=== PATIENT | male | born 1935 | race Caucasian/White ===

== ENCOUNTER 2022-02-26 11:09 | Outpatient (REF) | payer MEDICARE, SELFPAY ==
--- NOTE | ~2022-02-26 | XR_ITS ---
EXAMINATION: XR KNEE, LEFT CLINICAL INFORMATION: Left knee pain COMPARISON: None TECHNIQUE: Four views of the left knee. FINDINGS: Tricompartmental degenerative changes are present with narrowing of all compartments. There is faint chondrocalcinosis with calcification in both menisci. No fractures or dislocations are present. Extensive vascular calcification is noted. XR/XR knee LT 4V IMPRESSION: Tricompartmental degenerative changes with chondrocalcinosis.
== END 2022-02-26 11:10 | disposition home or self-care (01) ==
LOC: HO.HMGCX 11:09
PROVIDERS: Visit Provider Physician Assistant
DX: M25.562 Pain in left knee (principal)
CPT/HCPCS: 73564

== ENCOUNTER 2022-04-03 08:11 | Outpatient (REF) | payer MEDICARE, SELFPAY ==
--- NOTE | ~2022-04-03 | XR_ITS ---
EXAMINATION: XR HIP, RIGHT CLINICAL INFORMATION: Right hip sprain. COMPARISON: None TECHNIQUE: Two views of the right hip. FINDINGS: Bones and soft tissues are normal. No fracture. Alignment is anatomic. Hip joint space is maintained. XR/XR hip RT w PEL1V IMPRESSION: Unremarkable right hip.
== END 2022-04-03 08:12 | disposition home or self-care (01) ==
LOC: HO.HMGCX 08:11
PROVIDERS: PCP Internal Medicine; Visit Provider Internal Medicine
DX: S73.191A Other sprain of right hip, initial encounter (principal)
CPT/HCPCS: 73502

== ENCOUNTER 2022-12-23 07:53 | Outpatient (REF) | payer MEDICARE, SELFPAY ==
--- NOTE | ~2022-12-23 | XR_ITS ---
EXAMINATION: XR ABDOMEN KUB CLINICAL INDICATION: General calculus COMPARISON: None available. TECHNIQUE: AP view of the abdomen. FINDINGS: The bowel gas pattern is normal with no evidence of ileus or obstruction. No unusual soft tissue calcifications are noted. The bones are unremarkable. XR/XR KUB IMPRESSION: Unremarkable examination.
[2022-12-23 09:30] LABS: Anion Gap 12 (12-20); Blood Urea Nitrogen 41 mg/dL (9-16); Calcium 9.6 mg/dL (8.4-10.2); Carbon Dioxide 24 mmol/L (22-29); Chloride 109 mmol/L (96-108); Estimated Glomerular Filt Rate 40; Glucose Random 96 mg/dL (60-115); Potassium 4.9 mmol/L (3.3-5.1); Sodium 140 mmol/L (135-145)
== END 2022-12-23 07:54 | disposition home or self-care (01) ==
LOC: HO.XRAY 07:53
PROVIDERS: PCP Internal Medicine; Visit Provider Physician Assistant Surgical
DX: N40.1 Benign prostatic hyperplasia with lower urinary tract symptoms (principal); N20.0 Calculus of kidney
CPT/HCPCS: 36415; 74018; 80048

== ENCOUNTER 2023-11-29 23:07 | Observation (INO) | payer MEDICARE, SELFPAY ==
--- NOTE | 2023-11-29 | ECG_ITS ---
Test Reason : CHEST GUERRERO Blood Pressure : / mmHG Vent. Rate : 078 BPM Atrial Rate : 312 BPM P-R Int : 000 ms QRS Dur : 106 ms QT Int : 368 ms P-R-T Axes : 245 -60 009 degrees QTc Int : 419 ms Atrial flutter with 4:1 A-V conduction Left axis deviation Incomplete right bundle branch block Anterior infarct , age undetermined Abnormal ECG No previous ECGs available Referred By: Generic ED Physician Electronically Signed By:MARY EM
--- NOTE | ~2023-11-29 | MR_ITS ---
EXAMINATION: MR BRAIN WITHOUT CONTRAST CLINICAL INFORMATION: ? CVA COMPARISON: Same day CT head TECHNIQUE: MRI of the brain was obtained using routine sequences without contrast. FINDINGS: Motion artifact is present. No acute intracranial hemorrhage or infarct. Diffuse prominence of the sulci with associated ex vacuo dilation of the ventricles compatible with global cerebral atrophy. No midline shift or hydrocephalus. No acute extra-axial fluid collections. The osseous structures are unremarkable. The pituitary gland, pineal gland and remaining midline structures are unremarkable. Sequela of bilateral lens replacement. Otherwise, no acute orbital pathology. The paranasal sinuses and mastoid air cells are clear. MR/MR head/brain wo con IMPRESSION: Within the limitations of the study, -No acute intracranial abnormality. Electronically signed by: Marcel Mazariegos MD 11/30/2023 05:22 PM EDT
--- NOTE | ~2023-11-29 | XR_ITS ---
EXAMINATION: XR CHEST CLINICAL INFORMATION: Shortness of breath COMPARISON: None available. TECHNIQUE: Frontal view of the chest was obtained. FINDINGS: The cardiomediastinal silhouette is normal. There is no focal lung consolidation or pleural effusions. The bony structures and the soft tissues are unremarkable. XR/XR chest 1V IMPRESSION: No acute cardiopulmonary process. Electronically signed by: Donato Cruz MD 11/30/2023 04:02 AM EDT
--- NOTE | ~2023-11-29 | CT_ITS ---
EXAMINATION: CT HEAD WITHOUT CONTRAST CLINICAL INFORMATION: Loss of balance. COMPARISON: None available. TECHNIQUE: Contiguous axial imaging was performed from the skull base to vertex without intravenous administration of contrast. This CT examination was performed using dose optimization techniques as appropriate, variously including the following: *Automated exposure control *Adjustment of mA and/or kV according to patient size (this includes techniques or standardized protocols for targeted exams where dose is matched to indication/reason for exam; i.e. extremities or head) *Use of iterative reconstruction technique DLP: 693 mGy-cm FINDINGS: The lateral, third and fourth ventricles are normally outlined. The cortical sulci and basal cisterns are normally outlined as well. There is no acute territorial defects, hemorrhage or midline shift. The extra-axial spaces are unremarkable. Calvarium/scalp: Intact. Maxillofacial sinuses and mastoids: Clear as visualized. CT/CT head/brain wo IV con IMPRESSION: No acute intracranial pathology. Electronically signed by: Donato Cruz MD 11/30/2023 05:29 AM EDT
--- NOTE | ~2023-11-29 | CT_ITS ---
EXAMINATION: CTA head and neck with contrast CLINICAL INFORMATION: CVA COMPARISON: None available. TECHNIQUE: Test bolus sequences followed by intravenous administration of 100 mL of Omnipaque 350 contrast. Helical imaging was performed in the axial plane from the skull vertex to the thoracic inlet. Delayed postcontrast imaging of the head was also performed. The data was processed at the educational technologist workstation for generation of MIP sequences. Angled MIPs and volume rendered reformatted images were also generated at an offline 3D workstation. Stenoses are assessed in accordance with NASCET criteria unless otherwise indicated. This CT examination was performed using dose optimization techniques as appropriate, variously including the following: *Automated exposure control *Adjustment of mA and/or kV according to patient size (this includes techniques or standardized protocols for targeted exams where dose is matched to indication/reason for exam; i.e. extremities or head) *Use of iterative reconstruction technique DLP: 1578 mGy-cm FINDINGS: CTA NECK: Three-vessel aortic arch. The innominate and bilateral subclavian arteries are patent. The origins and cervical segments of the common carotid arteries are patent bilaterally. The right common carotid artery bifurcations demonstrate mural calcifications resulting in mild to moderate focal stenosis. The cervical segments of the internal carotid arteries are patent bilaterally. Nondominant right vertebral artery. The origins and cervical segments of the vertebral arteries are patent bilaterally. No hemodynamically significant stenosis, dissection, or aneurysm. The visualized branches of the external carotid arteries are unremarkable. CTA HEAD: Mild to moderate atherosclerotic calcifications of the bilateral carotid siphons. Anterior circulation: The petrous, cavernous, supraclinoid segments of the internal carotid arteries are patent bilaterally. The major branches of the anterior and middle cerebral arteries as well as anterior communicating artery complex are patent. No large vessel occlusion, saccular aneurysm, or dissection. Posterior circulation: The right intracranial vertebral artery terminates at the equally small right PICA, normal variant. The left intracranial vertebral artery is normal in caliber and is patent. The basilar artery is mildly tortuous in course however remains patent. The posterior cerebral and superior cerebellar arteries arise normally from the basilar summit. Right posterior cerebral artery. No aneurysm. On delayed imaging, the venous structures demonstrate normal contrast opacification. No filling defect. No abnormal intraparenchymal enhancement. Soft tissues: No suspicious neck mass or cervical adenopathy. Lungs: Dependent atelectasis bilaterally. Bones: No acute osseous abnormality. No lytic or blastic osseous lesions. Multilevel degenerative changes of the visualized spine. CT/CT angio head neck IMPRESSION: CTA head demonstrates no large vessel occlusion, saccular aneurysm, or dissection. CTA neck demonstrates no hemodynamically significant stenosis, dissection, or aneurysm. Electronically signed by: Marcel Mazariegos MD 11/30/2023 05:43 PM EDT
[2023-11-29 23:14] VITALS: BP 146/90; PULSE 79; RESP 20; TEMP 36.4; O2SAT 99; BMI 27.4
[2023-11-29 23:34] LABS: Basophils Percent Auto 0.3 % (0-2); Eosinophils Percent Auto 0.3 % (0-4); Hemoglobin 14.9 g/dl (14.0-18.0); Imm Gran Abs Auto 0.02 X10*3/uL (0.00-0.03); Imm Gran Pct Auto 0.2 % (0.0-0.4); Lymphocytes Absolute Auto 1.7 X10*3/uL (1.2-4.9); Lymphocytes Percent Auto 19.5 % (20-40); MANUAL DIFF FLAG NO; Mean Corpuscular HGB Conc 33.1 g/dl (31.0-36.0); Mean Corpuscular Hemoglobin 30.8 pg (27.0-33.0); Mean Corpuscular Volume 93.2 fL (80.0-98.0); Mean Platelet Volume 11.1 fL (9.4-12.4); Monocytes Absolute Auto 0.6 X10*3/uL (0.1-1.2); Monocytes Percent Auto 6.8 % (2-11); Neutrophils Absolute Auto 6.4 x10*3/uL (2.0-8.3); Neutrophils Percent Auto 72.9 % (45-73); Platelet Count 264 X10*3/uL (160-400); Red Blood Count 4.83 X10*6/uL (4.60-5.80); Red Cell Distribution Width 14.1 % (11.0-16.0); White Blood Count 8.7 X10*3/uL (4.8-10.8)
[2023-11-29 23:38] VITALS: BP 138/88; PULSE 77; RESP 14; TEMP 36.6; O2SAT 97
[2023-11-29 23:50] LABS: Alanine Aminotransferase 21 U/L (0-40); Albumin Level 4.4 g/dL (3.5-5.0); Alkaline Phosphatase 62 U/L (39-117); Anion Gap 19 (12-20); Aspartate Amino Transferase 20 U/L (5-37); Bilirubin Total 0.6 mg/dL (0.0-1.0); Blood Urea Nitrogen 38 mg/dL (9-16); Calcium 10.5 mg/dL (8.4-10.2); Carbon Dioxide 22 mmol/L (22-29); Chloride 106 mmol/L (96-108); Creatinine Clr Calc Pharmacy 35.1; Estimated Glomerular Filt Rate 46; Glucose Random 140 mg/dL (60-115); Potassium 4.8 mmol/L (3.3-5.1); Sodium 142 mmol/L (135-145); Total Protein 7.3 g/dL (6.5-8.0)
[2023-11-29 23:58] LABS: Troponin-I High Sensitivity 12.3 ng/L (<3.5-35.0)
[2023-11-30] VITALS (16 sets, daily range): BP systolic 117–155; BP diastolic 75–94; PULSE 75–160; RESP 17–20; TEMP 36.2–36.7; O2SAT 95–98
--- NOTE | 2023-11-30 03:00 | ED.DIZZY ---
HPI - Dizziness General Chief Complaint: Dizziness Stated Complaint: dizzy, upper abdominal pressure, nauseous Time Seen by Provider: 11/30/23 02:58 Source: patient Mode of arrival: ambulatory Limitations: no limitations History of Present Illness ED Provider: devon HOOD Narrative: Patient is 88 years old with history of hypertension CKD been feeling off balance with dizziness since 11:00 yesterday also feel some vague feeling in his chest patient feels slight lightheaded also when he stands up denies any palpitation feeling never had similar symptoms in the past no nausea no vomiting no headache on arrival it noticed patient in atrial flutter with heart rate 80-160 gets worse on standing Related Data Home Medications ?Medication ?Instructions ?Recorded ?Confirmed acetaminophen 500 mg tablet 1,000 mg PO Q6H PRN 12/04/21 (Tylenol Extra Strength) allopurinol 100 mg tablet 100 mg PO DAILY 12/04/21 11/30/23 cholecalciferol (vitamin D3) 25 25 mcg PO .every other day 12/04/21 mcg (1,000 unit) tablet clonidine HCl 0.1 mg tablet 0.1 mg PO BEDTIME 12/04/21 fluticasone propionate 50 spray intranasal 12/04/21 mcg/actuation nasal spray,suspension glucosamine HCl 500 mg tablet 500 mg PO DAILY 12/04/21 hydrochlorothiazide 25 mg tablet 25 mg PO DAILY 12/04/21 11/30/23 lisinopril 10 mg tablet 10 mg PO DAILY 12/04/21 11/30/23 potassium citrate 10 mEq (1,080 10 meq PO BID 12/04/21 11/30/23 mg) tablet,extended release rosuvastatin 5 mg tablet 5 mg PO DAILY 12/04/21 11/30/23 tamsulosin 0.4 mg capsule 0.4 mg PO DAILY 12/04/21 11/30/23 Previous Rx's ?Medication ?Instructions ?Recorded cyclobenzaprine 10 mg tablet 10 mg PO BEDTIME #14 tabs 12/04/21 meloxicam 15 mg tablet 15 mg PO DAILY #14 tabs 04/02/22 Allergies Allergy/AdvReac Type Severity Reaction Status Date / Time No Known Allergies Allergy Verified 11/29/23 23:17 Review of Systems Review of Systems: Yes all other systems are reviewed and are negative PMFSH Past Medical History Medical History CKD (chronic kidney disease) BPH (benign prostatic hyperplasia) Gout Mixed hyperlipidemia Hypertension Social History Social History Smoked in Last 30 Days: No Use of substances other than those prescribed or required for medical reasons: No Advance Directives: No Advance Directives Information Provided: Yes Do you have a plan to hurt others: No Plan Physical Exam Vital Signs: Vital Signs: Last Vital Signs Temp 98.0 F 11/30/23 06:00 Pulse 76 11/30/23 06:00 Resp 20 11/30/23 06:00 BP 155/87 H 11/30/23 06:00 Pulse Ox 96 11/30/23 06:00 O2 Del Method Room Air 11/30/23 06:00 BMI result Body Mass Index 27.4 Appearance: Alert. Oriented X3. No acute distress. Eyes: PERRLA, No Nystagmus ENT: Pharynx normal. Oral Mucosa moist Neck: Normal inspection. Neck supple. CVS: Irregularly irregular heart rate Pulses normal. Respiratory: No respiratory distress. Equal air entry bilateral, no wheezing/rales/rhonchi Abdomen: Soft and nontender. Bowel sounds are present, no mass palpable, no CVA tenderness Skin: Skin warm and dry. Normal skin color. Normal skin turgor. Extremities: No lower extremity edema. No calf tenderness Neuro: Oriented X 3. No motor deficit. No sensory deficit. Truncal ataxia on ambulation no tremors , cranial nerves II-XII intact NIH Stroke Scale Time: 04:00 Level of Consciousness: Alert Level of Consciousness Questions: Answers both questions correctly Level of Consciousness Commands: Performs both tasks correctly Best Gaze: Normal Visual: No visual loss Facial Palsy: Normal Motor Arm (Right): No drift Motor Arm (Left): No drift Motor Leg (Right): No drift Motor Leg (Left): No drift Limb Ataxia: Absent Sensory: Normal Best Language: No aphasia Dysarthia: Normal Extinction and Inattention: No abnormality Score: 0 Medications Administered Generic Name Dose Route Start Last Admin Trade Name Freq PRN Reason Stop Dose Admin Omeprazole 20 mg 11/30/23 06:30 11/30/23 06:12 Omeprazole 20 Mg Capsule. PO 20 mg DAILY@0630 CHRISTINA Administration Discontinued Medications Generic Name Dose Route Start Last Admin Trade Name Freq PRN Reason Stop Dose Admin Diltiazem HCl 30 mg 11/30/23 03:24 11/30/23 03:33 Diltiazem Hcl 30 Mg Tablet PO 11/30/23 03:25 30 mg ONCE ONE Administration Protocol Diltiazem HCl 10 mg 11/30/23 04:10 11/30/23 04:17 Diltiazem Hcl 50 Mg/10 Ml Vial IVPUSH 11/30/23 04:11 10 mg STAT STA Administration Lactated Ringer's 500 mls @ 500 mls/hr 11/30/23 05:00 11/30/23 07:20 Lr IV 11/30/23 05:59 Infused .Q1H CHRISTINA Infusion Iohexol 70 ml 11/30/23 06:19 11/30/23 06:19 Iohexol 350 Mg/Ml 100 Ml Infus..Btl IV 11/30/23 06:20 70 ml ONCE ONE Administration Medical Decision Making Medical Decision Making MDM Narrative: Patient with new onset atrial flutter with heart rate 80-160 specially on standing also had ataxia. Head CT was negative for CVA no other motor weakness noticed no other cerebellar sign will need CTA head and neck to rule out LVO which is also negative final report is pending will admit patient for further evaluation need MRI anticoagulation hospitalist aware Differential Diagnosis Differential Diagnoses: The differential diagnosis associated with the presentation includes Orthostatic/atrial flutter/atrial fibrillation Admission/Observation Consideration of admission/observation: Escalation of care including admission/observation considered Consult Healthcare Provider Management of the patient was discussed with: Hospitalist Lab Data [facility] Lab Attestation statement: I reviewed the patient's lab results. 11/29/23 23:25 11/29/23 23:25 Labs: Lab Results 11/29/23 11/30/23 Range/Units 23:25 03:13 WBC 8.7 (4.8-10.8) X10*3/uL RBC 4.83 (4.60-5.80) X10*6/uL Hgb 14.9 (14.0-18.0) g/dl Hct 45.0 (42.0-52.0) % MCV 93.2 (80.0-98.0) fL MCH 30.8 (27.0-33.0) pg MCHC 33.1 (31.0-36.0) g/dl RDW 14.1 (11.0-16.0) % Plt Count 264 (160-400) X10*3/uL MPV 11.1 (9.4-12.4) fL Immature Gran % (Auto) 0.2 (0.0-0.4) % Neut % (Auto) 72.9 (45-73) % Lymph % (Auto) 19.5 L (20-40) % [place] % (Auto) 6.8 (2-11) % Eos % (Auto) 0.3 (0-4) % Baso % (Auto) 0.3 (0-2) % Lymph # (Auto) 1.7 (1.2-4.9) X10*3/uL [place] # (Auto) 0.6 (0.1-1.2) X10*3/uL Eos # (Auto) 0.0 (0.0-0.4) X10*3/uL Baso # (Auto) 0.0 (0.0-0.2) X10*3/uL Abs Immat Gran (auto) 0.02 (0.00-0.03) X10*3/uL Absolute Neuts (auto) 6.4 (2.0-8.3) x10*3/uL Absolute Nucleated RBC 0.000 (0.0-0.012) X10*3/uL Nucleated RBC % (auto) 0.0 (0.0-0.2) /100WBC PT 10.8 L (10.9-12.4) SEC INR 0.9 (0.9-1.1) APTT 30.1 (26.0-36.8) SEC Sodium 142 (135-145) mmol/L Potassium 4.8 (3.3-5.1) mmol/L Chloride 106 (96-108) mmol/L Carbon Dioxide 22 (22-29) mmol/L Anion Gap 19 (12-20) BUN 38 H (9-16) mg/dL Creatinine 1.46 H (0.5-1.4) mg/dL Estim Creat Clear Calc 35.1 Estimated GFR 46 Random Glucose 140 H (60-115) mg/dL Calcium 10.5 H D (8.4-10.2) mg/dL Total Bilirubin 0.6 (0.0-1.0) mg/dL AST 20 (5-37) U/L ALT 21 (0-40) U/L Alkaline Phosphatase 62 (39-117) U/L Troponin I High Sens 12.3 11.9 (<3.5-35.0) ng/L B-Natriuretic Peptide 66 (<100) pg/mL Total Protein 7.3 (6.5-8.0) g/dL Albumin 4.4 (3.5-5.0) g/dL Independent Interpretation I performed an independent interpretation of an: EKG and CT Scan Interpretation: Atrial flutter with 4:1 AV conduction heart rate 78 beats per minute no acute STT wave changes no acute ischemia Radiology Impression Discussion of test interpretation with radiology: I have reviewed the radiologist's reading. Radiologist Impression: Negative plane head CT Discharge Plan Discharge Clinical Impression: Atrial flutter with rapid ventricular response Patient Disposition: Admitted As Inpatient
[2023-11-30 03:25] LABS: INTERNATIONAL NORM RATIO 0.9 (0.9-1.1); Prothrombin Time 10.8 SEC (10.9-12.4)
[2023-11-30 03:27] LABS: Partial Thromboplastin Time 30.1 SEC (26.0-36.8)
[2023-11-30 03:29] LABS: B Type Natriuretic Peptide 66 pg/mL (<100)
[2023-11-30] MEDS: dilTIAZem HCL 30 MG TABLET PO (03:33)
[2023-11-30 03:38] LABS: Troponin-I High Sensitivity 11.9 ng/L (<3.5-35.0)
--- NOTE | 2023-11-30 04:13 | PC.NURSE ---
Patient stood up to use urinal and became very lightheaded and dizzy, and HR went to 160 sustained until patient returned back to the bed and lying down.
[2023-11-30] MEDS: dilTIAZem HCL 50 MG/10 ML VIAL 10 MG IVPUSH (04:17)
--- NOTE | 2023-11-30 05:02 | PM.IMHP ---
History of Present Illness Date of Service: 11/30/23 Chief Complaint: Dizziness This is a 88-year-old male with pertinent history of hypertension, gout, BPH, mixed hyperlipidemia, chronic kidney disease who presents to the emergency department for evaluation of dizziness. Patient states his symptoms started on the day of presentation. He got dizzy and lightheaded when he stood up and felt like he would pass out. He was also unsteady on his feet and felt like he was leaning to one side. Patient states he was having symptoms of gastroesophageal reflux disease with discomfort in the stomach, flatulence on the day of presentation. Also had 2 episodes of nausea and nonbloody emesis. No history of irregular heart rhythm in the past. Patient's heart rate was elevated when he measured it and he decided to come to the ER. No fever, chills, chest pain, palpitations, shortness of breath, abdominal pain, changes in urinary or bowel habits. In the emergency department, patient was found to be in a flutter with RVR and given IV diltiazem. Review of Systems ENT: Reports dizziness and Reports disequilibrium Cardiovascular: Cardiovascular: Reports no additional cardiovascular complaints Respiratory: Respiratory: Reports no additional respiratory complaints Gastrointestinal: Gastrointestinal: Reports no additional gastrointestinal complaints Genitourinary: Genitourinary: Reports no additional male genitourinary complaints Neurologic: Reports dizziness and Reports disequilibrium COUNT INCLUDES THE [facility] Medical History CKD (chronic kidney disease) BPH (benign prostatic hyperplasia) Gout Mixed hyperlipidemia Hypertension Pertinent family history: Not significant due to age Social History Smoked in Last 30 Days: No Use of substances other than those prescribed or required for medical reasons: No Advance Directives: No Advance Directives Information Provided: Yes Do you have a plan to hurt others: No Plan Meds Allergies Allergy/AdvReac Type Severity Reaction Status Date / Time No Known Allergies Allergy Verified 11/29/23 23:17 Home Medications ?Medication ?Instructions ?Recorded ?Confirmed ?Last Taken ?Type acetaminophen 500 mg tablet 1,000 mg PO Q6H PRN 12/04/21 Unknown History (Tylenol Extra Strength) allopurinol 100 mg tablet 100 mg PO DAILY 12/04/21 11/30/23 11/29/23 History cholecalciferol (vitamin D3) 25 25 mcg PO .every other day 12/04/21 Unknown History mcg (1,000 unit) tablet clonidine HCl 0.1 mg tablet 0.1 mg PO BEDTIME 12/04/21 Unknown History fluticasone propionate 50 spray intranasal 12/04/21 Unknown History mcg/actuation nasal spray,suspension glucosamine HCl 500 mg tablet 500 mg PO DAILY 12/04/21 Unknown History hydrochlorothiazide 25 mg tablet 25 mg PO DAILY 12/04/21 11/30/23 11/29/23 History lisinopril 10 mg tablet 10 mg PO DAILY 12/04/21 11/30/23 11/29/23 History potassium citrate 10 mEq (1,080 10 meq PO BID 12/04/21 11/30/23 11/29/23 08:00 History mg) tablet,extended release rosuvastatin 5 mg tablet 5 mg PO DAILY 12/04/21 11/30/23 11/28/23 History tamsulosin 0.4 mg capsule 0.4 mg PO DAILY 12/04/21 11/30/23 11/28/23 History Physical Exam Vital Signs and Narrative: Vital Signs: Last Vital Signs Temp 97.6 F 11/30/23 00:08 Pulse 78 11/30/23 04:53 Resp 18 11/30/23 03:18 BP 124/79 11/30/23 04:53 Pulse Ox 96 11/30/23 04:53 O2 Del Method Room Air 11/30/23 04:53 BMI result Body Mass Index 27.4 Middle-aged male lying in bed in no distress Neck supple, no JVD Regular rate and rhythm, S1-S2 heard Regular breath sounds bilaterally, no wheezing or crackles appreciated Abdomen soft nontender, no guarding, no rigidity Patient is awake, alert and oriented to self, place, time and person, leaning towards 1 side when standing with eyes closed, no nystagmus, no dysdiadochokinesia Psych: Normal mood No pedal edema Results Labs 11/29/23 23:25 11/29/23 23:25 Labs: Laboratory Results - last 24 hr 11/29/23 11/30/23 23:25 03:13 MCV 93.2 MCH 30.8 MCHC 33.1 RDW 14.1 Plt Count 264 MPV 11.1 Immature Gran % (Auto) 0.2 Neut % (Auto) 72.9 Lymph % (Auto) 19.5 L [place] % (Auto) 6.8 Eos % (Auto) 0.3 Baso % (Auto) 0.3 Lymph # (Auto) 1.7 [place] # (Auto) 0.6 Eos # (Auto) 0.0 Baso # (Auto) 0.0 Abs Immat Gran (auto) 0.02 Absolute Neuts (auto) 6.4 Absolute Nucleated RBC 0.000 Nucleated RBC % (auto) 0.0 PT 10.8 L INR 0.9 APTT 30.1 Anion Gap 19 Estim Creat Clear Calc 35.1 Estimated GFR 46 Random Glucose 140 H Calcium 10.5 H D Total Bilirubin 0.6 AST 20 ALT 21 Alkaline Phosphatase 62 Troponin I High Sens 12.3 11.9 B-Natriuretic Peptide 66 Total Protein 7.3 Albumin 4.4 Imaging Radiologist's Impressions: Impressions Chest X-Ray 11/30/23 03:24 IMPRESSION: No acute cardiopulmonary process. Electronically signed by: Donato Cruz MD 11/30/2023 04:02 AM EDT RP Assessment and Plan (1) Dizziness: Status: Acute (2) Atrial flutter with rapid ventricular response: Status: Acute Plan This is a 88-year-old male with pertinent history of hypertension, gout, BPH, mixed hyperlipidemia, chronic kidney disease who presents to the emergency department for evaluation of dizziness. #. Dizziness: Presyncope versus disequilibrium. Said initially he was dizzy/lightheaded and felt like he would pass out upon standing. Will give IV crystalloids and repeat orthostatics in a.m.. In the emergency department, patient leaning to one side and found to be unsteady on feet. CTA and MRI pending to rule out posterior CVA #. Atrial flutter with RVR: New onset. Obtaining TSH and echo. Cardiology consulted. Rate controlled with IV diltiazem in the ER. Chads Vasc score 3 #. Gastroesophageal reflux disease: Initiating Protonix #. BPH: On Flomax #. Mixed hyperlipidemia: On statin #. Hypertension: Continue home antihypertensives Med rec pending DVT prophylaxis: Lovenox Full code Quality Stroke Does the patient have a stroke diagnosis?: No VTE Prior VTE?: No VTE Risk Level:: Medical - moderate - high VTE Device Contraindication: Treatment Not Indicated VTE Drug Contraindication: N/A - Med Ordered
[2023-11-30] MEDS: Lactated Ringers 500 ML IV (05:46)
[2023-11-30] MEDS: Omeprazole 20 MG CAPSULE.DR PO (06:12)
[2023-11-30] MEDS: iohexoL 350 MG/ML 100 ML INFUS..BTL 70 ML IV (06:19)
--- NOTE | 2023-11-30 07:00 | PC.NURSE ---
Report taken from Lashae White RN
--- NOTE | 2023-11-30 07:00 | CA_ITS ---
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 The visually estimated ejection fraction is between 55-60%. - No obvious valvular pathology seen on this study. Findings Left Ventricle Normal left ventricular cavity size. There is mildly increased left ventricular wall thickness. The left ventricular systolic function is normal. The visually estimated ejection fraction is between 55-60%. Regional wall motion abnormalities can not be excluded due to suboptimal endocardial definition. Diastolic function is normal for age. Right Ventricle Normal right ventricular cavity size and systolic function. Atria Both atria are normal in size. Aortic Valve There is mild calcification of the aortic valve. There is no aortic valve stenosis. There is no aortic valve regurgitation. Mitral Valve The mitral valve appears normal. There is no mitral valve regurgitation. There is no mitral valve stenosis. Pulmonic Valve The pulmonic valve is likely normal. Tricuspid Valve Normal tricuspid valve structure. There is trace tricuspid valve regurgitation. There is no evidence of pulmonary hypertension. Great Vessels The asc aorta is normal in size. Small plaque is seen in the sino tubular ridge. Venous The inferior vena cava is normal in size and collapses greater than 50% with inspiration. Pericardium/Pleural There is no evidence of pericardial effusion. Prior Study Comparison No prior study available for comparison. Recommendations, Care & Conclusions No obvious valvular pathology seen on this study. Measurements 2D Linear Measurements IVSd: 1.24 0.6-0.9/0.6-1.0 cm LVIDd: 3.36 3.9-5.3/4.2-5.9 cm LVIDd Index: 1.72 2.4-3.2/2.2-3.1 cm/m2 LVIDs: 2.16 2.0-3.6 cm LVPWd: 1.22 0.7-1.1 cm Ao Root: 2.90 2.1-3.5 cm LA Diam: 3.40 2.7-3.8/3.0-4.0 cm LAIDs Index: 1.74 1.5-2.3 cm/m2 LV Mass: 165.57 67-162/88-224 g LV Mass Index: 84.91 43-95/49-115 g/m2 LVOT Diam: 2.20 3.0+(-)1.3 cm 2D Systolic Function EF 4C: 51.00 >55% EF 2C: 49.00 >55% EF BiP: 48.90 >55% Mitral Valve MV Pk E: 0.93 MV PK A: 0.65 MV Decel Time: 108.00 E/A: 1.40 E'Lateral: 14.70 E'Medial: 9.25 E/E' Med: 10.10 E/E' Lat: 6.30 PHT: 32.00 MVA PHT: 6.88 Decel Giles: 8.64 Aortic Valve AoV Pk Baldev: 1.77 AoV Mn Baldev: 1.26 AoV VTI: 0.39 AoV Pk Grad: 13.00 Aov Mn Grad: 7.00 JANNY Cont.VTI: 2.12 LVOT LVOT Pk Baldev: 1.04 LVOT Mn Baldev: 0.70 LVOT VTI: 0.22 LVOT Pk Grad: 4.00 LVOT Mn Grad: 2.00 LVOT Diam: 2.20 LVOT Area: 3.80 Diastolic Function MV Pk E: 0.93 MV Pk A: 0.65 E/A: 1.40 E'Medial: 9.25 E/E' Med: 10.10 E' Laterial: 14.70 E/E' Lat: 6.30 Right Ventricle TAPSE (mm): 25.00 TVS' Baldev: 10.00 Tricuspid Valve TR Pk Baldev: 1.97 TR Pk Grad: 16.00 RA Press: 3.00 RVSP: 19.00 Great Vessels Aorta Ao Root-2D: 2.90 2.0-3.7 cm Ao Asc: 3.60 2.1-3.4 cm Pulmonary Valve PV Pk Baldev: 0.75 Peak PV Grad: 2.00 Updated in Other Vendor System with Status of Final Ned Cates MD electronically signed on 11/30/2023 12:39:02 PM with status of Final
--- NOTE | 2023-11-30 07:37 | PM.EVENT ---
Event Note Date of Service: 11/30/23 Event Note: 88/m with HTN, gout, BPH, HLD, CKD 3B here with AFIB with RVR and dizziness Dizziness Presyncope--likely related to AFIB with RVR. CT Head no CVA -CTA of H/N--pending, MRI pending AFIB w/ RVR, now rate controlled following IV cardizem -start eliquis -low dose metoprolol -echo and cardiology eval GERD -Omeprazol BPH -Flomax HLD -statin Gout -allopurinol HTN- -started metoprolol 25 bid -reduce lisinopril 30 to 10 -continue HCTZ CKD 3B-stable DVT prophylaxis: Lovenox Full code Time Spent With Patient Time: Total time managing care of this patient today ____ minutes.
--- NOTE | 2023-11-30 08:37 | PHA.MEDREC ---
Pharmacy Consult ? Medication Reconciliation Pharmacy has completed the medication reconciliation. Spoke to patient at bedside, unable to name medications without being prompted but able to differentiate when he takes them. also stated he takes tylenol PRN; no other OTC medications
[2023-11-30] MEDS: Metoprolol Tartrate 25 MG TABLET PO ×2 (09:45→21:21)
[2023-11-30] MEDS: lisinopriL 10 MG TABLET PO (09:45)
[2023-11-30] MEDS: Apixaban 5 MG TABLET PO ×2 (09:45→21:20)
[2023-11-30] MEDS: allopurinoL 100 MG TABLET PO (09:45)
[2023-11-30] MEDS: hydroCHLOROthiazide 25 MG TABLET PO (09:45)
[2023-11-30] MEDS: Potassium Chloride ER 10 MEQ TABLET.ER PO ×2 (09:45→21:21)
--- NOTE | 2023-11-30 11:00 | PM.CNCAR ---
History of Present Illness History of Present Illness Date of Service: 11/30/23 Chief complaint: Dizziness Narrative: This is a cardiology consultation regarding atrial flutter. Patient states that over the last few days or so, he might have been short of breath with activity but he did not pay much attention. On the day of presentation, he got dizzy and lightheaded when he stood up. He thought he was going to pass out and that led to the ER visit. He has also had a couple of episodes of nausea/emesis. In this setting, it seems that he noticed heart rate being elevated and hence came to the ER. Then found to be in atrial flutter with rapid rate and got IV diltiazem. Subsequently admitted. Currently, he states he feels much better. Denies any previous cardiac history including coronary disease or myocardial infarction or cardiomyopathy or any other cardiac issues. Review of Systems Review of Systems: Yes all other systems are reviewed and are negative Constitutional: Constitutional: Reports as per HPI and Reports no additional constitutional complaints Eyes: Eyes: Reports as per HPI and Denies no additional eye complaints ENT: Denies system reviewed and no additional complaints, except as documented and Reports as per HPI Cardiovascular: Cardiovascular: Reports as per HPI, Reports no additional cardiovascular complaints, Denies acrocyanosis, Denies cool extremities, Denies chest pain, Denies leg edema, Reports lightheadedness, Denies palpitations and Denies dyspnea Respiratory: Respiratory: Reports as per HPI, Denies no additional respiratory complaints and Denies dyspnea Gastrointestinal: Gastrointestinal: Reports as per HPI and Denies no additional gastrointestinal complaints Genitourinary: Genitourinary: Reports no additional male genitourinary complaints and Reports as per HPI Musculoskeletal: Musculoskeletal: Reports no additional musculoskeletal complaints and Reports as per HPI Integumentary/Breasts: Skin/Breast: Reports system reviewed and no additional complaints, except as docu Neurologic: Reports system reviewed and no additional complaints, except as documented and Reports as per HPI Psychiatric: Psychiatric: Reports no additional psychiatric complaints and Reports as per HPI Endocrine: Endocrine: Reports no additional endocrine complaints, Reports as per HPI and Denies palpitations Hematologic/Lymphatic: Hematologic/Lymphatic: Reports no additional hematologic/lymphatic complaints and Reports as per HPI Allergic/Immunologic: Allergic/Immunologic: Reports no additional allergic/immunologic complaints and Reports as per HPI [facility] Past Medical History Medical History CKD (chronic kidney disease) BPH (benign prostatic hyperplasia) Gout Mixed hyperlipidemia Hypertension Family History Family History (Updated 11/30/23 @ 11:04 by Ned Cates MD) Father No problems noted. Mother Myocardial infarction Social History Social History Patient Tobacco Use Status: Never used Tobacco Meds Allergies Allergy/AdvReac Type Severity Reaction Status Date / Time No Known Allergies Allergy Verified 11/29/23 23:17 Active Medications: Current Medications Acetaminophen (Acetaminophen 325 Mg Tablet) 650 mg PO Q6H PRN PRN Reason: Pain, Mild (Pain Scale 1-3), fever or headache Allopurinol (Allopurinol 100 Mg Tablet) 100 mg PO DAILY [facility] Last Admin: 11/30/23 09:45 Dose: 100 mg Apixaban (Apixaban 5 Mg Tablet) 5 mg PO BID [facility] Last Admin: 11/30/23 09:45 Dose: 5 mg Atorvastatin Calcium (Atorvastatin Calcium 20 Mg Tablet) 20 mg PO BEDTIME CHRISTINA Calcium Carbonate (Calcium Carbonate 750 Mg Tab.Chew) 750 mg PO Q4H PRN PRN Reason: Heartburn Hydrochlorothiazide (Hydrochlorothiazide 25 Mg Tablet) 25 mg PO DAILY [facility]; Protocol Last Admin: 11/30/23 09:45 Dose: 25 mg Lisinopril (Lisinopril 10 Mg Tablet) 10 mg PO DAILY [facility]; Protocol Last Admin: 11/30/23 09:45 Dose: 10 mg Magnesium Hydroxide (Milk Of Magnesia 30 Ml Oral.Susp) 30 ml PO DAILY PRN PRN Reason: Constipation Melatonin (Melatonin 3 Mg Tablet) 6 mg PO BEDTIME PRN PRN Reason: Insomnia Metoprolol Tartrate (Metoprolol Tartrate 25 Mg Tablet) 25 mg PO BID [facility]; Protocol Last Admin: 11/30/23 09:45 Dose: 25 mg Omeprazole (Omeprazole 20 Mg Capsule.Dr) 20 mg PO DAILY@0630 [facility] Last Admin: 11/30/23 06:12 Dose: 20 mg Ondansetron HCl (Ondansetron Hcl 4 Mg/2 Ml Vial) 4 mg IVPUSH Q8H PRN PRN Reason: Nausea and Vomiting Potassium Chloride (Potassium Chloride Er 10 Meq Tablet.Er) 10 meq PO BID [facility] Last Admin: 11/30/23 09:45 Dose: 10 meq Sodium Chloride (0.9 % Sodium Chloride Flush 3 Ml Syringe) 3 ml IVFLUSH QSHIFT [facility] Last Admin: 11/30/23 07:25 Dose: Not Given Tamsulosin HCl (Tamsulosin Hcl 0.4 Mg Capsule) 0.4 mg PO BEDTIME [facility] Home Medications ?Medication ?Instructions ?Recorded ?Confirmed ?Last Taken ?Type acetaminophen 325 mg tablet 650 mg PO Q6H PRN Pain 11/30/23 11/30/23 Unknown History allopurinol 100 mg tablet 100 mg PO DAILY 11/30/23 11/30/23 11/29/23 History hydrochlorothiazide 25 mg tablet 25 mg PO DAILY 11/30/23 11/30/23 11/29/23 History lisinopril 30 mg tablet 30 mg PO DAILY 11/30/23 11/30/23 11/29/23 History potassium citrate 10 mEq (1,080 10 meq PO BID 11/30/23 11/30/23 11/29/23 History mg) tablet,extended release rosuvastatin 5 mg tablet 5 mg PO BEDTIME 11/30/23 11/30/23 Unknown History tamsulosin 0.4 mg capsule 0.4 mg PO BEDTIME 11/30/23 11/30/23 Unknown History Physical Exam Vital Signs: Vital Signs: Last Vital Signs Temp 97.4 F 11/30/23 09:42 Pulse 82 11/30/23 09:53 Resp 17 11/30/23 09:42 BP 134/84 11/30/23 09:53 Pulse Ox 96 11/30/23 09:42 O2 Del Method Room Air 11/30/23 09:42 BMI result Body Mass Index 27.4 Const: General: comfortable and no acute distress Orientation/consciousness: patient oriented x3 HEENT: Other: Unremarkable Head: Yes normal to inspection Neck: Neck: Yes normal visual inspection Chest: Chest palpation & inspection: normal inspection of the chest Resp: Auscultation: clear to auscultation bilaterally Cardio: Palpation: normal PMI Heart sounds: S1 normal heart sound present, S2 normal heart sound present, no gallops, no murmurs and no rubs GI: Palpation (GI): Soft to palpation Back/Spine/Pelvis: Other: unremarkable Skin: General skin exam: no rashes or lesions noted Neuro: General: patient oriented x3 Extrem: General: Yes normal to inspection Psych: Mental Status: mental status grossly normal Objective Labs and Meds 11/29/23 23:25 11/29/23 23:25 Lab results: Laboratory Results - last 24 hr 11/29/23 11/30/23 23:25 03:13 WBC 8.7 RBC 4.83 Hgb 14.9 Hct 45.0 MCV 93.2 MCH 30.8 MCHC 33.1 RDW 14.1 Plt Count 264 MPV 11.1 Immature Gran % (Auto) 0.2 Neut % (Auto) 72.9 Lymph % (Auto) 19.[address] [place] % (Auto) 6.8 Eos % (Auto) 0.3 Baso % (Auto) 0.3 Lymph # (Auto) 1.7 [place] # (Auto) 0.6 Eos # (Auto) 0.0 Baso # (Auto) 0.0 Abs Immat Gran (auto) 0.02 Absolute Neuts (auto) 6.4 Absolute Nucleated RBC 0.000 Nucleated RBC % (auto) 0.0 PT 10.8 L INR 0.9 APTT 30.1 Sodium 142 Potassium 4.8 Chloride 106 Carbon Dioxide 22 Anion Gap 19 BUN 38 H Creatinine 1.46 H Estim Creat Clear Calc 35.1 Estimated GFR 46 Random Glucose 140 H Calcium 10.5 H D Total Bilirubin 0.6 AST 20 ALT 21 Alkaline Phosphatase 62 Troponin I High Sens 12.3 11.9 B-Natriuretic Peptide 66 Total Protein 7.3 Albumin 4.4 Imaging Radiologist's impression: Impressions Chest X-Ray 11/30/23 03:24 IMPRESSION: No acute cardiopulmonary process. Electronically signed by: Donato Cruz MD 11/30/2023 04:02 AM EDT RP Head CT 11/30/23 03:24 IMPRESSION: No acute intracranial pathology. Electronically signed by: Donato Cruz MD 11/30/2023 05:29 AM EDT Assessment and Plan (1) Atrial flutter with rapid ventricular response: Status: Acute Plan EKG in the system shows atrial flutter with controlled rate at 78/Min. However, per notes he did have rapid rates and got IV diltiazem. Chest x-ray shows no acute process. Labs show elevated creatinine but that seems chronic. High sensitivity troponins within range. Cardiac BNP within limits at 66. Currently, patient on a small dose of beta-olga. Also on anticoagulation. We will monitor heart rate on telemetry. Obtain echocardiogram. Patient agrees with plan. Procedures Date of Service Date of Service: 11/30/23
--- NOTE | 2023-11-30 14:37 | MHC.CM.PN ---
CM met with Patient, & Son at bedside and addressed LOPEZ with Patient, providing him with the original and a copy has been placed on the chart. Patient completed a HCP, naming his first and his Son as his Agents. 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 CM has initiated and will follow for dc planning. PCP is Dr. Arreola and will transport to home.
[2023-11-30] MEDS: Atorvastatin Calcium 20 MG TABLET PO (21:20)
[2023-11-30] MEDS: Tamsulosin HCL 0.4 MG CAPSULE PO (21:20)
[2023-11-30] MEDS: 0.9 % Sodium Chloride Flush 3 ML SYRINGE IVFLUSH (21:21)
[2023-12-01] VITALS: BP 119/86; PULSE 88; RESP 18; TEMP 36.5; O2SAT 95
[2023-12-01 03:17] VITALS: BP 119/89; PULSE 78; RESP 18; TEMP 36.1; O2SAT 95
[2023-12-01] MEDS: Omeprazole 20 MG CAPSULE.DR PO (06:44)
[2023-12-01 07:13] LABS: Hematocrit 44.1 % (42.0-52.0); Hemoglobin 14.5 g/dl (14.0-18.0); Mean Corpuscular HGB Conc 32.9 g/dl (31.0-36.0); Mean Corpuscular Volume 94.2 fL (80.0-98.0); Mean Platelet Volume 11.5 fL (9.4-12.4); Platelet Count 235 X10*3/uL (160-400); Red Blood Count 4.68 X10*6/uL (4.60-5.80); Red Cell Distribution Width 14.4 % (11.0-16.0)
[2023-12-01 07:19] VITALS: BP 113/81; PULSE 79; RESP 16; TEMP 36.2; O2SAT 96
--- NOTE | 2023-12-01 07:25 | P.DS_ITS ---
DS: Providers Provider Date of Service: 12/01/23 Date of admission: 11/30/23 05:01 Primary care physician: Marlene Arreola MD Consults: 11/30/23 05:04 Consult to Cardiology Routine Consulting Provider: [facility] Reason for consultation: ?new onset atrial flutter Has provider been notified: Yes DS: Diagnosis Discharge Diagnosis (1) Atrial flutter with rapid ventricular response: Status: Acute DS: Summary Hospital Course Hospital Course: admission HPI Chief Complaint: Dizziness This is a 88-year-old male with pertinent history of hypertension, gout, BPH, mixed hyperlipidemia, chronic kidney disease who presents to the emergency department for evaluation of dizziness. Patient states his symptoms started on the day of presentation. He got dizzy and lightheaded when he stood up and felt like he would pass out. He was also unsteady on his feet and felt like he was leaning to one side. Patient states he was having symptoms of gastroesophageal reflux disease with discomfort in the stomach, flatulence on the day of presentation. Also had 2 episodes of nausea and nonbloody emesis. No history of irregular heart rhythm in the past. Patient's heart rate was elevated when he measured it and he decided to come to the ER. No fever, chills, chest pain, palpitations, shortness of breath, abdominal pain, changes in urinary or bowel habits. In the emergency department, patient was found to be in a flutter with RVR and given IV diltiazem. hospital course: The patient presented with dizziness and was found to be in atrial fibrillation with a rapid ventricular response. A CT of the head, CTA of the head and neck, and MRI were all unremarkable for acute stroke. In the emergency room, atrial fibrillation was managed with intravenous Cardizem, successfully controlling the heart rate. Upon admission, metoprolol and Eliquis were initiated for stroke prevention. An echocardiogram revealed no valvular pathology and a normal ejection fraction. Cardiology recommended continuing metoprolol and anticoagulation with Eliquis 2.5 mg BID, given the creatinine level greater than 1.5. It is possible that part of his dizziness maybe related to positional vertigo Time Attestation Discharge Coordination Time (in mins): 35 Quality: Safe Use of Opioids Does Pt have an Active Cancer Diagnosis on the Problem List?: No Quality: Stroke Does the patient have a stroke diagnosis?: No Physical Exam Vital Signs: Vital Signs: Last Vital Signs Temp 97.1 F 12/01/23 07:19 Pulse 79 12/01/23 07:19 Resp 16 12/01/23 07:19 BP 113/81 12/01/23 07:19 Pulse Ox 96 12/01/23 07:19 O2 Del Method Room Air 12/01/23 07:19 BMI result Body Mass Index 27.4 General: AO X 3, no acute distress Resp: CTA bilateral CVS: S1,S2,RRR GI: +BS, NT, no distention Skin: No rash Neuro: motor grossly intact Psych: appropriate affect Const: Other: General: AO X 3, no acute distress Resp: CTA bilateral CVS: S1,S2, iregular iregular GI: +BS, NT, no distention Skin: No rash Neuro: motor grossly intact Psych: appropriate affect DS: Data Data Completed and Pending Labs on day of discharge: Laboratory Results - last 24 hr 12/01/23 06:16 WBC 7.0 RBC 4.68 Hgb 14.5 Hct 44.1 MCV 94.2 MCH 31.0 MCHC 32.9 RDW 14.4 Plt Count 235 MPV 11.5 Absolute Nucleated RBC 0.000 Nucleated RBC % (auto) 0.0 Discharge Plan Discharge Anticipated Discharge Date/Time: 12/01/23 07:23 Patient Disposition: Home, Self-Care Discharge Diagnosis: flutter with RVR, dizziness Referrals: Marlene Arreola MD [Primary Care Provider] - 1 Week Discharge Medications: New metoprolol tartrate 25 mg Tablet 25 mg PO BID Qty: 180 0RF Protocol: Hold for SBP/HR < HOLD for SBP < : 90 HOLD for HR < : 60 Eliquis 2.5 mg tablet 2.5 mg PO BID Qty: 180 0RF Continued acetaminophen 325 mg Tablet 650 mg PO Q6H PRN (Reason: Pain) allopurinol 100 mg tablet 100 mg PO DAILY tamsulosin 0.4 mg capsule 0.4 mg PO BEDTIME potassium citrate 10 mEq (1,080 mg) tablet extended release 10 meq PO BID lisinopril 30 mg tablet 30 mg PO DAILY hydrochlorothiazide 25 mg tablet 25 mg PO DAILY rosuvastatin 5 mg tablet 5 mg PO BEDTIME Diet: Advance to usual diet Activity on Discharge: As tolerated Stand Alone Forms: Patient Portal Discharge page Print Language: Mongolian Care Plan Goals: rate control for atrial fibrillation and stroke prevention Health Concerns: Atrial fibrillation dizziness Plan of Treatment: take metoprolol to control heart rate take Eliquis to prevent stroke follow-up with your primary care doctor within a week, call for appointment. Assessment: See above
[2023-12-01 07:38] LABS: Anion Gap 13 (12-20); Blood Urea Nitrogen 38 mg/dL (9-16); Calcium 10.3 mg/dL (8.4-10.2); Carbon Dioxide 25 mmol/L (22-29); Chloride 106 mmol/L (96-108); Creatinine Clr Calc Pharmacy 29.8; Estimated Glomerular Filt Rate 38; Glucose Random 96 mg/dL (60-115); Potassium 4.8 mmol/L (3.3-5.1); Sodium 139 mmol/L (135-145)
[2023-12-01 07:56] LABS: Thyroid Stimulating Hormone 0.83 uIU/mL (0.32-4.0)
[2023-12-01] MEDS: allopurinoL 100 MG TABLET PO (08:34)
[2023-12-01] MEDS: 0.9 % Sodium Chloride Flush 3 ML SYRINGE IVFLUSH (08:34)
[2023-12-01] MEDS: hydroCHLOROthiazide 25 MG TABLET PO (08:34)
[2023-12-01] MEDS: Metoprolol Tartrate 25 MG TABLET PO (08:34)
[2023-12-01] MEDS: Apixaban 5 MG TABLET PO (08:34)
[2023-12-01] MEDS: Potassium Chloride ER 10 MEQ TABLET.ER PO (08:34)
[2023-12-01] MEDS: lisinopriL 10 MG TABLET PO (08:34)
--- NOTE | 2023-12-01 10:46 | PM.PNCARD ---
Subjective Subjective Date of Service: 12/01/23 Interval history: He states that he feels fine. Mild dizziness but difficult to say if it is vertigo as he also describes room spinning. No other complaints. Review of Systems Review of Systems Yes all other systems are reviewed and are negative Constitutional: Reports as per HPI and Reports no additional constitutional complaints Eyes: Reports as per HPI and Denies no additional eye complaints Denies system reviewed and no additional complaints, except as documented and Reports as per HPI Cardiovascular: Reports as per HPI, Reports no additional cardiovascular complaints, Denies acrocyanosis, Denies cool extremities, Denies chest pain, Denies leg edema, Denies lightheadedness, Denies palpitations and Denies dyspnea Respiratory: Reports as per HPI, Denies no additional respiratory complaints and Denies dyspnea Gastrointestinal: Reports as per HPI and Denies no additional gastrointestinal complaints Genitourinary: Reports no additional male genitourinary complaints and Reports as per HPI Musculoskeletal: Reports no additional musculoskeletal complaints and Reports as per HPI Skin/Breast: Reports system reviewed and no additional complaints, except as docu Reports system reviewed and no additional complaints, except as documented and Reports as per HPI Psychiatric: Reports no additional psychiatric complaints and Reports as per HPI Endocrine: Reports no additional endocrine complaints, Reports as per HPI and Denies palpitations Hematologic/Lymphatic: Reports no additional hematologic/lymphatic complaints and Reports as per HPI Allergic/Immunologic: Reports no additional allergic/immunologic complaints and Reports as per HPI Physical Exam Vital Signs: Last Vital Signs Temp 97.1 F 12/01/23 07:19 Pulse 79 12/01/23 07:19 Resp 16 12/01/23 07:19 BP 113/81 12/01/23 07:19 Pulse Ox 96 12/01/23 07:19 O2 Del Method Room Air 12/01/23 07:19 BMI result Body Mass Index 27.4 Const General: comfortable and no acute distress Orientation/consciousness: patient oriented x3 HEENT Other: Unremarkable Head: Yes normal to inspection Neck Neck: Yes normal visual inspection Chest Chest palpation & inspection: normal inspection of the chest Resp Auscultation: clear to auscultation bilaterally Cardio Palpation: normal PMI Heart sounds: S1 normal heart sound present, S2 normal heart sound present, no gallops, no murmurs and no rubs GI Palpation (GI): Soft to palpation Back/Spine/Pelvis Other: unremarkable Skin General skin exam: no rashes or lesions noted Neuro General: patient oriented x3 Extrem General: Yes normal to inspection Psych Mental Status: mental status grossly normal Objective Labs and Meds 12/01/23 06:16 12/01/23 06:16 Lab results: Laboratory Results - last 24 hr 12/01/23 06:16 WBC 7.0 RBC 4.68 Hgb 14.5 Hct 44.1 MCV 94.2 MCH 31.0 MCHC 32.9 RDW 14.4 Plt Count 235 MPV 11.5 Absolute Nucleated RBC 0.000 Nucleated RBC % (auto) 0.0 Sodium 139 Potassium 4.8 Chloride 106 Carbon Dioxide 25 Anion Gap 13 BUN 38 H Creatinine 1.72 H Estim Creat Clear Calc 29.8 Estimated GFR 38 Random Glucose 96 Calcium 10.3 H TSH 0.83 Imaging Radiologist's impression: Impressions Head/Neck CTA 11/30/23 05:55 IMPRESSION: CTA head demonstrates no large vessel occlusion, saccular aneurysm, or dissection. CTA neck demonstrates no hemodynamically significant stenosis, dissection, or aneurysm. Electronically signed by: Marcel Mazariegos MD 11/30/2023 05:43 PM EDT RP Brain MRI 11/30/23 12:30 IMPRESSION: Within the limitations of the study, -No acute intracranial abnormality. Electronically signed by: Marcel Mazariegos MD 11/30/2023 05:22 PM EDT RP Progress Note: A&P Assessment and plan (1) Atrial flutter with rapid ventricular response: Status: Acute Plan Telemetry shows atrial flutter with controlled rate. No clear rapid rates at this time. In the echocardiogram, LVEF 55-60%. Labs show elevated creatinine. Normal high sensitivity troponins. Cardiac BNP is within range. Thyroid function is also unremarkable. May continue the current regimen including beta-blockers and Eliquis. Outpatient Holter. Follow-up will be arranged. Discussed with at the bedside. Time Spent With Patient Time: Total time managing care of this patient today ____ minutes. Progress Note: Quality Stroke Does the patient have a stroke diagnosis?: No Procedures Date of Service Date of Service: 12/01/23
[2023-12-01 12:00] VITALS: BP 119/85; PULSE 80; RESP 16; TEMP 36.1; O2SAT 99
--- NOTE | 2023-12-01 12:35 | MHC.CM.PN ---
Per MD, in [facility]OUNDS, Patient will be medically cleared for dc to home today, self care.
--- NOTE | 2023-12-01 12:59 | MHC.CM.PN ---
Patient has been medically cleared for dc to home today, self care.
== END 2023-12-01 14:04 | disposition home or self-care (01) ==
LOC: HO.ED 11-30 02:58 → HO.EDOVER 11-30 05:10 → HO.IMC 11-30 08:02
PROVIDERS: Admitting Provider Student in an Organized Health Care Education/Training Program; Emergency Provider Internal Medicine; PCP Internal Medicine; Visit Provider Internal Medicine
DX: R42 Dizziness and giddiness (principal); I48.92 Unspecified atrial flutter; I12.9 Hypertensive chronic kidney disease with stage 1 through stage 4 chronic kidney disease, or unspecified chronic kidney disease; N18.9 Chronic kidney disease, unspecified; M10.9 Gout, unspecified; Z79.899 Other long term (current) drug therapy
CPT/HCPCS: 36415; 70450; 70496; 70498; 70551; 71045; 80048; 80053; 83880; 84443; 84484; 85025; 85027; 85610; 85730; 93005; 93306; 96361; 96374; 97161; 99222; 99285; J7120; Q9967

== ENCOUNTER → 2023-11-29 23:10 | Outpatient (BNV) | payer MEDICARE, SELFPAY | PROVIDERS: Admitting Provider Student in an Organized Health Care Education/Training Program; Emergency Provider Internal Medicine; PCP Internal Medicine; Visit Provider Internal Medicine | DX: I48.92 Unspecified atrial flutter (principal) | CPT/HCPCS: 93010 ==

== ENCOUNTER → 2023-11-30 05:01 | Outpatient (BNV) | payer MEDICARE, SELFPAY | PROVIDERS: Admitting Provider Student in an Organized Health Care Education/Training Program; Emergency Provider Internal Medicine; PCP Internal Medicine; Visit Provider Student in an Organized Health Care Education/Training Program | DX: I48.92 Unspecified atrial flutter (principal) | CPT/HCPCS: 99223; 99239; 99499 ==

== ENCOUNTER → 2023-11-30 05:01 | Outpatient (BNV) | payer MEDICARE, SELFPAY | PROVIDERS: Admitting Provider Student in an Organized Health Care Education/Training Program; Emergency Provider Internal Medicine; PCP Internal Medicine; Visit Provider Internal Medicine | DX: I35.8 Other nonrheumatic aortic valve disorders (principal); I48.92 Unspecified atrial flutter | CPT/HCPCS: 93306; 99223; 99233 ==

== ENCOUNTER → 2023-12-11 10:59 | Outpatient (REF) | payer MEDICARE, SELFPAY ==
--- NOTE | 2023-12-11 11:03 | HM_ITS ---
Conclusion: 1. Patient was monitored for total period of 3 days 2. Baseline was atrial fibrillation with average heart of 73 beats per minute with good rate control 3. Multiple pauses noted with the longest pause of 4.1 seconds happening at 03:00 during sleep hours, not significant for patients with atrial fibrillation 4. Rare PVCs noted 5. No patient reported events MTDD
== END ==
LOC: HO.CARD 10:59
PROVIDERS: PCP Internal Medicine; Visit Provider Internal Medicine
DX: I48.92 Unspecified atrial flutter (principal)
CPT/HCPCS: 93242

== ENCOUNTER → 2023-12-11 11:03 | Outpatient (BNV) | payer MEDICARE, SELFPAY | PROVIDERS: PCP Internal Medicine; Visit Provider Internal Medicine Cardiovascular Disease | DX: I48.91 Unspecified atrial fibrillation (principal) | CPT/HCPCS: 93244 ==

== ENCOUNTER 2023-12-31 13:39 | Outpatient (AMB) | payer MEDICARE, SELFPAY ==
[2023-12-31 13:45] VITALS: BP 122/70; PULSE 72; BMI 28.3
--- NOTE | 2023-12-31 13:45 | A.OFFVIS_ITS ---
Vital Signs 12/31/23 13:45 Height 5 ft 8 in Weight 186 lb 1.122 oz BMI 28.3 BP 122/70 Blood Pressure Location Rt brachial Position Sitting Pulse 72 Pulse Source Pulse Oximeter Intake Visit Reasons: Hosp F/U s/p holter [employer] Required: No Infection Control Nurse: Infection Control Nurse Present Allergies No Known Allergies Allergy (Verified 12/31/23 13:49) Medication List - Last Reconciled 12/31/23 by Shala Wilson NP-C acetaminophen 650 mg PO Q6H PRN allopurinol 100 mg PO DAILY apixaban (Eliquis) 2.5 mg PO BID hydrochlorothiazide 25 mg PO DAILY lisinopril 30 mg PO DAILY metoprolol tartrate 25 mg See Protocol PO BID potassium citrate ER 10 mEq PO BID rosuvastatin 5 mg PO BEDTIME tamsulosin 0.4 mg PO BEDTIME HPI HPI Hosp F/U s/p holter: Details: Jose is an 88-year-old male with past medical history of hypertension and hyperlipidemia who recently presented to [facility] with feeling of lightheadedness. He was found to have new onset atrial flutter with RVR and was treated with rate control. He was admitted for evaluation an echo showed normal EF. He did not have decompensated heart failure. He was discharged on metoprolol and Eliquis. Today he reports he has been doing well since his hospital discharge. He notices some mild fatigue but he is not letting it hold him back. He denies any shortness of breath, PND, orthopnea or edema. He no longer has lightheadedness, no palpitations, presyncope, syncope, falls. No chest discomfort at rest or with activity. No bleeding issues with anticoagulation use. Meds as directed. is present. [facility] Medical History CKD (chronic kidney disease) BPH (benign prostatic hyperplasia) Gout Mixed hyperlipidemia Hypertension Family History Father No problems noted. Mother Myocardial infarction Social History Patient Tobacco Use Status: Never used Tobacco service: No Review of Systems Const All systems reviewed & are unremarkable except as noted in HPI and below ENT Denies dizziness Card Denies chest pain, Denies chest pain at rest, Denies chest pain with activity, Denies rapid heart rate, Denies pedal edema, Denies edema, Denies leg edema, Denies lightheadedness, Denies palpitations, Denies dyspnea, Denies dyspnea on exertion and Denies orthopnea Resp Denies cough, Denies dyspnea and Denies dyspnea on exertion GI Denies hematochezia and Denies change in stool character Musc Denies abnormal gait, Denies limited range of motion, Denies muscle cramps, Denies muscle weakness, Denies numbness, Denies radiating pain into limb, Denies stiffness and Denies tingling Neuro Denies abnormal gait, Denies dizziness, Denies numbness and Denies tingling Endo Denies palpitations Physical Exam Vital Signs: Last Vital Signs Pulse 72 12/31/23 13:45 BP 122/70 12/31/23 13:45 BMI result Body Mass Index 28.3 Const General: cooperative, healthy appearing, comfortable and no acute distress Orientation/consciousness: patient oriented x3 Neck Neck: Yes normal visual inspection Resp Effort & Inspection: normal respiratory effort Auscultation: clear to auscultation bilaterally, no crackles, no rales, no rhonchi and no wheezes Cardio Jugular venous distension: no JVD Rate: regular rate Rhythm: abnormal rhythm Heart sounds: S1 normal heart sound present, S2 normal heart sound present, no murmurs and no rubs Neuro General: patient oriented x3 Extrem General: Yes normal to inspection and No no pedal edema Psych Appearance: grossly normal Mental Status: mental status grossly normal Speech and movement: Normal speech and movement present Assessment & Plan Assessment & Plan (1) Atrial fibrillation and flutter: Code(s): I48.91 - Unspecified atrial fibrillation; I48.92 - Unspecified atrial flutter Category: Medical Plan: [place] [facility] [place] for [place] fl[place]. His symptom at that time was lightheadedness. Echocardiogram showed EF 55-60%, no valve abnormalities. He did not have decompensated heart failure. He was treated for heart rate control and sent home with metoprolol 25 mg b.i.d., Eliquis 2.5 mg b.i.d.. Labs 12 01 2023 showed creatinine 1.72, hematocrit 44.1. He reports no bleeding issues. An outpatient Holter monitor done 12/11/2023 for 3 days shows atrial fibrillation with average heart rate 73, pauses noted, longest 4.2 seconds during sleep, rare PVC. Today he reports that he is feeling well with only some very mild fatigue which he is relating to age. No shortness of breath or heart palpitations. He does not appear fluid overloaded on exam. His heart tones remain irregularly irregular. Clinically he is still in atrial fibrillation. Diagnosis of atrial fibrillation, stroke risk with AFib and med management reviewed with him. He is currently pleased with how he is feeling. Will continue to treat with heart rate control. Continue current anticoagulation, renal dose. He will call and let us know if he is starting to feel symptoms from the AFib. Going forward will check a pharmacological nuclear stress test to assess for any ischemia. He has no known cardiac history prior to his findi ng of atrial flutter/fibrillation. Cardiology follow-up 3 months, sooner if needed. (2) Hypertension: Code(s): I10 - Essential (primary) hypertension Category: Medical Plan: History of hypertension. Blood pressure currently well controlled at 122/70. Continue metoprolol. (3) Hospital discharge follow-up: Code(s): Z09 - Encounter for follow-up examination after completed treatment for con ditions other than malignant neoplasm Category: Medical Plan: As above Plan Time spent on chart review, documentation, interview and assessment Coding Level of Care Code Est Pt Level 4 (04279) Complex EM visit Add On G2211 Diagnoses Atrial fibrillation and flutter I48.91; I48.92 Hypertension I10 Hospital discharge follow-up Z09 Time Spent (min) 30
== END 2023-12-31 14:21 | disposition home or self-care (01) ==
PROVIDERS: PCP Internal Medicine; Visit Provider Nurse Practitioner Family
DX: I48.91 Unspecified atrial fibrillation (principal); I48.92 Unspecified atrial flutter; I10 Essential (primary) hypertension; Z09 Encounter for follow-up examination after completed treatment for conditions other than malignant neoplasm
CPT/HCPCS: 99214; G2211

== ENCOUNTER → 2023-12-31 13:39 | Outpatient (BNVA) | payer MEDICARE, SELFPAY | PROVIDERS: PCP Internal Medicine; Visit Provider Nurse Practitioner Family | DX: Z09 Encounter for follow-up examination after completed treatment for conditions other than malignant neoplasm (principal); I48.91 Unspecified atrial fibrillation; I48.92 Unspecified atrial flutter; I10 Essential (primary) hypertension | CPT/HCPCS: 99212 ==

== ENCOUNTER → 2024-04-05 09:34 | Outpatient (REF) | payer MEDICARE, SELFPAY ==
--- NOTE | ~2024-04-05 | NM_ITS ---
Lexiscan Myocardial perfusion study Indication: Abnormal EKG Technique: The patient was brought in for a Lexiscan perfusion study on 04/05/2024 and was injected 0.4 mg of Lexiscan intravenously. Within a minute of this injection 30 mCi of sestamibi was given intravenously. Images were obtained using the SPECT gamma camera interlaced with the gating device. Images were obtained in supine position. Resting perfusion study was performed on 04/06/2024. Patient was administered 30 mCi of sestamibi intravenously at rest. Images were then obtained in supine position. Total DLP 69 mGy-cm. Images were processed with the software and compared side to side in short axis, horizontal long axis and vertical long axis views. Findings: Raw aquisition reviewed. The stress perfusion study showed diminished tracer uptake along the inferior wall including the adjacent apex. With CT attenuation correction, there is some improvement in inferior wall uptake and hence could have components of diaphragmatic attenuation artifact. Inferior apex still has reduced uptake. The gated study shows normal LV systolic function with calculated LVEF of 69%. LV cavity is normal in size. The gated study shows reduced contractility in the inferior wall as well as the inferior apex. Resting study shows reduced tracer uptake along the inferior wall. Gating at rest reveals reduced inferior wall contractility with ejection fraction at 53%. The findings are consistent with mixed inferior perfusion defect; in the basal to midportion appears fixed; at the inferior apex reversible. NM/NM cardiolite stress test Impression: 1. Myocardial perfusion imaging study shows mixed ischemia/infarct pattern in the inferior wall. Towards the basal to mid portion, fixed defect suggesting infarct. At the inferior apex, reversible, suggesting ischemia. 2. Gated LVEF is 69% during stress and 53% during rest. 3. Transient ischemic dilatation not present. EKG component of the test reported separately. Electronically signed by: Ned Cates MD 04/06/2024 03:39 PM [facility]
--- NOTE | 2024-04-05 09:37 | CA_ITS ---
Acquisition Time: 2024-04-05 09:57:18 Total Exercise Time: 00:02:00 Test Indications: Abnormal ECG AFIB/AFLUTTER Medications: ALLOPURINOL ELIQUIS HCTZ LISINOPRIL METOPROLOL KCL ROSUVASTATIN TAMSULOSIN Protocol: LEXISCAN Max HR: 97 BPM 72% of Pred: 134 BPM Max BP: 128/74 mmHG Max Work Load: 1.6 METS Pharmacologic stress test with Lexiscan while pt walked on the treadmill at 1mph, without any anginal symptoms, without any arrythmias, with normotensive response to injection. Nondiagnostic EKG for ischemia. Nuclear images pending. Test reviewed with Dr. Cates. Referred By: Shala Wilson Electronically Signed By: Amari Villalobos
--- OUTSIDE RECORDS SUMMARY | 2024-04-05 10:18 | XMS_ITS | Encounter Summary ---
Demographics Address [address] [place] [address] Home Phone Work Phone Mobile Phone Home Phone Mobile Phone Email Address Preferred Language en Marital Status Yarsani Affiliation Unknown Race White Ethnic Group Not or Lati no Author Organization [employer] Address [address] [place] [address] Support Name Relationship Address Phone Amy Robins Spouse [address] [place] [address] Joce Robins Son [address] [place] [address] Care Team Providers Care Mac Developer Name Role Phone Marlene Arreola MD Primary Care Provider Reason for Visit * Reason Comments annual wellness visit Encounter Details Date Type Department Care Team (Late st Contact Info) Description 03/14/2024 9:00 AM EST Office Visit Adult Medicine [address] [phone] Marlene Arreola MD [address] [place] [id number] Metabolic syndrome (Primary Dx); Pure hypercholesterolemia ; Essential hypertension, benign; Stage 3 chronic kidney disease, unspecified whether stage 3a or 3b CKD (CMS/HCC); Atrial flutter, unspecified type (CMS/HCC); Upper respiratory tract infection, unspecified type; PSA elevation; Hyperglycemia; Patient has healthcare proxy Social History Tobacco Use Types Packs/Day Years Used Date Smoking Tobacco: Never Smokeless Tobacco: Never Tobacco Cessation:Counseling Given: Not Answered Alcohol Use Standard Drinks/Week Comments Yes 0 (1 standard drink = 0.6 oz pur e alcohol) Sex and Gender Information Value Date Recorded Sex Assigned at Not on file Legal Sex Male 2:28 AM EST Gender Identity Not on file Sexual Orientation Not on file documented as of this encounter Last Filed Vital Signs Vital Sign Reading Time Taken Comments Blood Pressure 122/64 03/14/2024 8:57 AM EST Pulse 60 03/14/2024 8:57 AM EST Temperature 35.8 ??C (96.4 ??F) 03/14/2024 8:57 AM ES T Respiratory Rate 22 03/14/2024 8:57 AM EST Oxygen Saturation - - Inhaled Oxygen Concentration - - Weight 81.2 kg (179 lb) 03/14/2024 8:57 AM EST Height 170.2 cm (5' 7 ) 03/14/2024 8:57 AM EST Body Mass Index 28.04 03/14/2024 8:57 AM EST documented in this encounter Ordered Prescriptions Prescription Sig Dispense Quantity Refills Last Filled Start Date End Date fluticasone propionate (FLONASE) 50 mcg/actuation nasal spray Administer 1 spray into each nostril 2 (two) times a day. Shake gently. Before first use, prime pump. After use, clean tip and replace cap.2 PUFFS EACH NOSTRIL EVERY 12 HRS NEEDED 16 g 2 03/14/2024 documented in this encounter Progress Notes * Marlene Arreola MD - 03/14/2024 9:00 AM ESTAssociated Problem(s): Metabolic syndrome Orders: Hemoglobin A1c; Future * Marlene Arreola MD - 03/14/2024 9:00 AM ESTAssociated Problem(s): Pure hypercholesterolemia * Marlene Arreola MD - 03/14/2024 9:00 AM ESTAssociated Problem(s): Essential hypertension, benign Orders: Hemoglobin A1c; Future * Marlene Arreola MD - 03/14/2024 9:00 AM ESTAssociated Problem(s): CKD (chronic kidney disease) stage 3, GFR 30-59 ml/min ([facility]/HCC) Orders: Comprehensive metabolic panel; Future Hemoglobin A1c; Future * Marlene Arreola MD - 03/14/2024 9:00 AM EST Images from the original note were not included. Medicare Annual Wellness Visit Note Patient Name: Jose Robins Date of : 1935 Race: White Ethnicity: Not Hispan/[facility] Date of Service: 03/14/2024 Jose is a 88 y.o. male presenting for annual wellness visit History of Present Illness HPI Comprehensive Medical and Social History: Patient Active Problem List Diagnosis ??? Arterial calcification ??? Benign prostatic hyperplasia without lower urinary tract symptoms ??? Bilateral kidney masses ??? Calculus of kidney ??? CKD (chronic kidney disease) stage 3, GFR 30-59 ml/min ([facility]/HCC) ??? Elevated PSA ??? Essential hypertension, benign ??? Hearing loss ??? Hypertriglyceridemia ??? Hyperuricemia ??? Metabolic syndrome ??? Mixed hyperlipidemia ??? Pneumonia ??? Pure hypercholesterolemia ??? Urinary retention No Known Allergies Current Outpatient Medications Medication Sig Dispense Refill ??? acetaminophen (TYLENOL) 325 mg tablet Take 650 mg by mouth every 6 hours as needed. ??? allopurinoL (ZYLOPRIM) 100 mg tablet Take 1 tablet (100 mg total) by mouth 1 (one) time each day. 90 tablet 1 ??? amoxicillin (AMOXIL) 500 mg capsule (PRE MED)TAKE 4 CAPSULES (2 GRAM) BY ORAL ROUTE 1 HOUR PRIOR TO PROCEDURE ??? apixaban (ELIQUIS) 2.5 mg tablet Take 1 tablet (2.5 mg total) by mouth 2 (two) times a day. ??? ascorbic acid (VITAMIN C) 1,000 mg tablet 1 TABLET DAILY ??? fluticasone propionate (FLONASE) 50 mcg/actuation nasal spray Administer 1 spray into each nostril 2 (two) times a day. Shake gently. Before first use, prime pump. After use, clean tip and replace cap.2 PUFFS EACH NOSTRIL EVERY 12 HRS NEEDED 16 g 2 ??? glucosamine sulfate 2KCl (Glucosamine Relief) 500 mg capsule Take 1 tablet by mouth 2 times daily. ??? hydroCHLOROthiazide (HYDRODIURIL) 25 mg tablet Take 1 tablet (25 mg total) by mouth 1 (one) time each day. 90 tablet 1 ??? lisinopriL (PRINIVIL,ZESTRIL) 30 mg tablet Take 1 Tablet by mouth daily for 180 days. - ??? metoprolol tartrate (LOPRESSOR) 25 mg tablet Take 1 tablet (25 mg total) by mouth 2 (two) timesa day. ??? potassium citrate (UROCIT-K) 10 mEq (1,080 mg) CR tablet ??? rosuvastatin (CRESTOR) 5 mg tablet Take 1 tablet (5 mg total) by mouth 1 (one) time each day. 90 tablet 1 ??? tamsulosin (FLOMAX) 0.4 mg 24 hr capsule Take 1 capsule (0.4 mg total) by mouth 1 (one) time each day. should be taken 30 minutes following the same meal each day. 90 capsule 1 ??? dapagliflozin propanediol (FARXIGA) 5 mg tablet Take 5 mg by mouth daily. (Patient not taking: Reported on 03/14/2024) No current facility-administered medications for this visit. Past Medical History: Diagnosis Date ??? Calculus of kidney 09/09/2005 DX:Calculus of kidney ??? Essential hypertension, benign DX:Essential hypertension, benign ??? 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 History of actinic keratoses 01/17/2019 DX:History of actinic keratoses ??? History of basal cell carcinoma 11/25/2005 DX:History of basal cell carcinoma; COMMENT: IMO update ??? Other chronic nonalcoholic liver disease DX:Other chronic nonalcoholic liver disease; COMMENT: fatty liver ??? Pure hypercholesterolemia DX:Pure hypercholesterolemia Past Surgical History: Procedure Laterality Date ??? COLONOSCOPY 04/15/07 PROCEDURE: NV COLONOSCOPY STOMA DX INCLUDING COLLJ SPEC SPX; COMMENT: Up to cecum, good preparation, mild diverticulosis, otherwise normal ??? OTHER SURGICAL HISTORY PROCEDURE: HISTORICAL CA BASAL CELL; COMMENT: BCC right ankle Social History Socioeconomic History ??? Marital status: Spouse name: None ??? Number of children: None ??? Years of education: None ??? Highest education level: None Occupational History ??? None Tobacco Use ??? Smoking status: Never ??? Smokeless tobacco: Never Substance and Sexual Activity ??? Alcohol use: Yes ??? Drug use: No ??? Sexual activity: None Comment: lives with Other Topics Concern ??? None Social History Narrative ??? None Family History Problem Relation Name Age of Onset ??? Hyperlipidemia Mother ??? Heart attack Mother at age late 40 ??? Other (Other: alzeheimer's disease) Father at age 92 ??? Hyperlipidemia Brother ??? Heart attack Uncle Immunizations: Immunization History Administered Date(s) Administered ??? COVID-19 (Moderna/Spikevax) 12yo and older 11/10/2023 ??? Hepatitis B (Rgdjrqy-J-Qfego, Recombivax HB-Adult) 19yo and older 10/05/2000, 12/09/2000 ??? Influenza Quadravalent, MDCK, 0.5ml, with preservative (Flucelvax) 6mo and older 11/25/2016, 11/30/2017 ??? Influenza trivalent, 0.5mL (Fluzone High-dose) 65yo and older 11/21/2015, 11/03/2018, 12/15/2022 ??? Influenza trivalent, with preservative (Fluzone; Afluria) 6mo and older 11/27/2009, 12/11/2010,03/09/2012, 12/28/2012, 11/21/2013, 11/22/2014 ??? Influenza, Unspecified 10/10/2019, 11/11/2021 ? ? Pfizer (ages 12 & older) SARS-CoV-2 COVID-19, mRNA, LNP-S, mery-sucrose, preservative free 09/03/2021 ??? Pfizer SARS-CoV-2 COVID-19, mRNA, LNP-S, preservative free 03/27/2020, 04/17/2020, 11/14/2020 ??? Pneumococcal conjugate 20 valent (Prevnar 20, PCV 20) 2mo and older 12/15/2022 ??? Pneumococcal polysaccharide 23 valent (Pneumovax 23) 2yo and older 08/25/2006 ??? Td Tetanus diptheria (Tdvax) 7yo and older 10/05/2000, 08/22/2010 ??? Tdap Tetanus diptheria acellular pertussis (Boostrix; Adacel) 7yo and older 12/28/2012 Hospitalization in the last year: Has been hospitalized once in the past 12 months. Current Providers and Suppliers: Patient Care Team: Marlene Arreola MD as PCP - General Cardiology, please see below for complete details. Physician assistants and nurse practitioners as care team members Patient does not have/use current medical supplier Risk Assessments: Cognitive Function Assessment Cognitive screening performed. Depression Screening (PHQ2/9): Depression Screening Will the patient answer the depression risk questions?: Yes Over the last 2 weeks, how often have you been bothered by little interest or pleasure in doing things?: Not at all Over the last 2 weeks, how often have you been bothered by feeling down, depressed, or hopeless?: Not at all Depression Risk: 0 PHQ9 Full Set of Questions Over the last 2 weeks, how often have you been bothered by little interest or pleasure in doing things?: Not at all Over the last 2 weeks, how often have you been bothered by feeling down, depressed, or hopeless?: Not at all Depression Risk Score NEW: 0 Depression Plan : Screen was negative Anxiety Screening: Alcohol Screening: Substance Abuse Screening: Pain: Pain Medications: Patient does not take any opioid medications BMI: Body mass index is 28.04 kg/m??. The BMI is above average. The patient received dietary education, exercise education, and strongly encouraged patient's effort to success because they have an above normal BMI. Functional Ability and Level of Safety Review Health Status: In general, patient reports life as: good Patient reports sleep pattern as: sleeping well Have you seen a dentist in the last year?: Yes Activity of Daily Living (ADLs): Do you need help from others for your personal care such as eating, dressing, toileting, or gettingaround the house?: No Do you experience incontinence?: No Instrumental Activities of Daily Living (IADLs): Do you need help with using the telephone?: No Do you need help with shopping?: No Do you need help with food preparation?: No Do you need help with housekeeping?: No Do you need help with laundry?: No Do you need help handling finances?: No Do you drive?: Yes Do you manage your own medication?: Yes, independent Physical Activity: Do you exercise for about 20 minutes or more three days a week?: Yes, most of the time Nutritional Assessment: Do you eat a balanced diet including daily serving of fruits, vegetables, and whole grains?: Yes, most of the time Social Influencer of Health (SIOH): Sexual Health: Have you been bothered by sexual problems: Declined to answer Fall Risk: Have you fallen in the past year? no. Are you worried about falling? yes. . Hearing: No data recorded Vision Screening: Required for Medicare Initial Preventative Physical Exam (IPPE) No data recorded Review of Systems Review of Systems Objective BP 122/64 Pulse 60 Temp 35.8 ??C (96.4 ??F) (Temporal) Resp 22 Ht 1.702 m (67 ) Wt 81.2 kg (179 lb) BMI 28.04 kg/m?? Physical Exam Assessment/Plan Patient presented today for an Subsequent Medicare Wellness Visit with management of chronic condition(s). Assessment & Plan Metabolic syndrome Orders: ??? Hemoglobin A1c; Future Pure hypercholesterolemia Essential hypertension, benign Orders: ??? Hemoglobin A1c; Future Stage 3 chronic kidney disease, unspecified whether stage 3a or 3b CKD (CMS/HCC) Orders: ??? Comprehensive metabolic panel; Future ??? Hemoglobin A1c; Future Atrial flutter, unspecified type (CMS/HCC) Orders: ??? Comprehensive metabolic panel; Future ??? CBC and differential; Future Upper respiratory tract infection, unspecified type PSA elevation Hyperglycemia Orders: ??? Hemoglobin A1c; Future Patient has healthcare proxy Advance Care Planning Discussion: Advance Care Planning was discussed. Jose reports that he does have advance directives and/or surrogate decision maker. Patient has identified their surrogate decision maker. During the visit we discussed: Code Status was discussed No Order and Available Advanced Directive forms discussed A total time of 16 minutes or greater was spent on Advance Care Planning today :No Fall Prevention Education Discussed: removal of throw rugs in home, adequate lighting/night lights,pausing with transitional movements, paying attention to surroundings, clear pathways/stairs, not rushing through tasks, and safe mobility over collin transitions Health Maintenance Topic Date Due ??? Hepatitis B Vaccines (3 of 3 - 19+ 3-dose series) 04/07/2001 ??? RSV Immunization Patients 60+ Years Old (1 - 1-dose 75+ series) Never done ??? Zoster Vaccines (2 of 2) 02/27/2020 ??? Social Influencers of Health Screening Never done ??? Medicare Annual Wellness Visit Never done ??? DTaP,Tdap,and Td Vaccines (4 - Td or Tdap) 12/28/2022 ??? Hypertension/CHF/CAD Annual BMP Blood Test 05/17/2024 ??? Falls Risk Assessment 03/14/2025 ??? Depression Screening 03/14/2025 ??? Cholesterol Screening (Lipid Panel) 05/17/2028 ??? Influenza Vaccine Completed ??? Pneumococcal Vaccine: 65+ Years Completed ??? COVID-19 Vaccine Completed ??? HIB Vaccines Aged Out ??? IPV Vaccines Aged Out ??? Hepatitis A Vaccines Aged Out ??? MMR Vaccines Aged Out ??? Varicella Vaccines Aged Out ??? Meningococcal ACWY Vaccine Aged Out ??? HPV Vaccines Aged Out ??? RSV Immunization Patients Under 20 months Aged Out Marlene Arreola MD ADULT MEDICINE [address] [address] Dept: [phone] Dept CHIEF COMPLAINT: annual wellness visit IDENTIFIER: Jose Robins is a 88 y.o. old male. HPI: Although the main purpose for this visit is for AWV, patient apparently had hospitalization and I obtained and reviewed patient's hospital information/discharge summary. Patient presented to the [facility] emergency room with a vague feeling of chest discomfort and lightheadedness.. Patient was admitted November 30, 2023, discharged December 01, 2023. Principal discharge diagnoses listed as atrial flutter with rapid ventricular response. Patient family was seen in consultation by cardiology.. I also obtained and reviewed patient's medication list and reconciled patient medicine. Laboratory results however is somewhat incomplete. Patient taking medication as instructed, including new medication of Eliquis and metoprolol. Patient denied further episode of chest discomfort, his activity level is good. He tried to be active to lose weight which is ongoing struggle. Shilo priest had nuclear stress test scheduled soon. His burner technician is Dr. July Bell. Patient denied any loss of balance fall or injury. He denied any bleeding. . ROS: GENERAL: Negative for malaise, significant weight loss and fever RESPIRATORY: No cough, wheezing or shortness of breath CARDIOVASCULAR: Negative for chest pain, leg swelling and palpitations, See HPI GI: Negative for abdominal discomfort, changes in bowel habits, blood in stool or black stools HEMATOLOGY/LYMPHOLOGY: No prolonged bleeding, easy bruising, or swollen lymph nodes ENDOCRINE: Negative for cold or heat intolerance, polyuria, polydipsia and goiter NEURO: No persistent headache, fainting, seizures, strokes, TIAs, weakness, numbness or tingling PAST MEDICAL HISTORY: Patient Active Problem List Diagnosis Date Noted ??? Arterial calcification 07/28/2022 ??? Mixed hyperlipidemia 03/25/2022 ??? Benign prostatic hyperplasia without lower urinary tract symptoms 11/18/2021 ??? Hyperuricemia 11/18/2021 ??? Hypertriglyceridemia 06/17/2021 ??? Metabolic syndrome 08/29/2020 ??? CKD (chronic kidney disease) stage 3, GFR 30-59 ml/min ([facility]) 02/01/2019 ??? Urinary retention 02/01/2019 ??? Hearing loss 05/14/2017 ??? Pneumonia 05/14/2017 ??? Bilateral kidney masses 02/21/2009 ??? Elevated PSA 04/29/2007 ??? Calculus of kidney 09/09/2005 ??? Essential hypertension, benign 09/09/2005 ??? Pure hypercholesterolemia 09/09/2005 SOCIAL HISTORY: Social History Tobacco Use ??? Smoking status: Never ??? Smokeless tobacco: Never Substance Use Topics ??? Alcohol use: Yes FAMILY HISTORY: Family Status Relation Name Status ??? Mother (Not Specified) ??? Father (Not Specified) ??? Brother (Not Specified) ??? Uncle (Not Specified) No partnership data on file Family History Problem Relation Name Age of Onset ??? Hyperlipidemia Mother ??? Heart attack Mother at age late 40 ??? Other (Other: alzeheimer's disease) Father at age 92 ??? Hyperlipidemia Brother ??? Heart attack Uncle ACTIVE MEDICATIONS: Outpatient Medications Marked as Taking for the 03/14/24 encounter (Office Visit) with Marlene Arreola MD Medication Sig Dispense Refill ??? acetaminophen (TYLENOL) 325 mg tablet Take 650 mg by mouth every 6 hours as needed. ??? allopurinoL (ZYLOPRIM) 100 mg tablet Take 1 tablet (100 mg total) by mouth 1 (one) time each day. 90 tablet 1 ??? amoxicillin (AMOXIL) 500 mg capsule (PRE MED)TAKE 4 CAPSULES (2 GRAM) BY ORAL ROUTE 1 HOUR PRIOR TO PROCEDURE ??? apixaban (ELIQUIS) 2.5 mg tablet Take 1 tablet (2.5 mg total) by mouth 2 (two) times a day. ??? ascorbic acid (VITAMIN C) 1,000 mg tablet 1 TABLET DAILY ??? fluticasone propionate (FLONASE) 50 mcg/actuation nasal spray Administer 1 spray into each nostril 2 (two) times a day. Shake gently. Before first use, prime pump. After use, clean tip and replace cap.2 PUFFS EACH NOSTRIL EVERY 12 HRS NEEDED 16 g 2 ??? glucosamine sulfate 2KCl (Glucosamine Relief) 500 mg capsule Take 1 tablet by mouth 2 times daily. ??? hydroCHLOROthiazide (HYDRODIURIL) 25 mg tablet Take 1 tablet (25 mg total) by mouth 1 (one) time each day. 90 tablet 1 ??? lisinopriL (PRINIVIL,ZESTRIL) 30 mg tablet Take 1 Tablet by mouth daily for 180 days. - ??? metoprolol tartrate (LOPRESSOR) 25 mg tablet Take 1 tablet (25 mg total) by mouth 2 (two) timesa day. ??? potassium citrate (UROCIT-K) 10 mEq (1,080 mg) CR tablet ??? rosuvastatin (CRESTOR) 5 mg tablet Take 1 tablet (5 mg total) by mouth 1 (one) time each day. 90 tablet 1 ??? tamsulosin (FLOMAX) 0.4 mg 24 hr capsule Take 1 capsule (0.4 mg total) by mouth 1 (one) time each day. should be taken 30 minutes following the same meal each day. 90 capsule 1 ??? [DISCONTINUED] fluticasone propionate (FLONASE) 50 mcg/actuation nasal spray 2 PUFFS EACH NOSTRIL EVERY 12 HRS NEEDED ALLERGIES: Patient has no known allergies. PHYSICAL EXAM: Blood pressure 122/64, pulse 60, temperature 35.8 ??C (96.4 ??F), temperature source Temporal, resp. rate 22, height 1.702 m (67 ), weight 81.2 kg (179 lb). Body mass index is 28.04 kg/m??. BMI is greater than 25.0 (above the normal range) - see Plan APPEARANCE: Alert and in no acute distress, well hydrated, well groomed, weight is overall improving NECK: No thyromegaly no bruits no JVD HEART: Appears to be regular, bradycardic at 58 bpm, normal S1-S2 LUNG: clear to auscultation bilaterally ABDOMEN: Bowel sounds normoactive, no bruits and soft, non-tender, without organomegaly or palpablemasses EXTREMITIES: No edema NEURO: Awake, alert and oriented x 3, reflexes symmetrical, and grossly nonfocal examination LABS: Lab Results Component Value Date HGBA1C 5.7 01/19/2023 Lab Results Component Value Date MICROALBCREA abstracted 01/19/2023 Wt Readings from Last 5 Encounters: 03/14/24 81.2 kg (179 lb) 12/16/23 81.2 kg (179 lb) 06/18/23 83.5 kg (184 lb) 06/02/23 83 kg (183 lb) 05/19/23 83.6 kg (184 lb 6.4 oz) BP Readings from Last 5 Encounters: 03/14/24 122/64 12/16/23 118/76 06/18/23 128/60 06/02/23 136/66 05/19/23 122/66 IMPRESSION: 1. Metabolic syndrome 2. Pure hypercholesterolemia 3. Essential hypertension, benign 4. Stage 3 chronic kidney disease, unspecified whether stage 3a or 3b CKD (CMS/HCC) 5. Atrial flutter, unspecified type (CMS/HCC) 6. Upper respiratory tract infection, unspecified type 7. PSA elevation 8. Hyperglycemia 9. Patient has healthcare proxy PLAN: Although the main purpose for this visit is for AWV, patient apparently had hospitalization and I obtained and reviewed patient's hospital information/discharge summary. Patient presented to the [facility] emergency room with a vague feeling of chest discomfort and lightheadedness.. Patient was admitted November 30, 2023, discharged December 01, 2023. Principal discharge diagnoses listed as atrial flutter with rapid ventricular response. Patient family was seen in consultation by cardiology.. I also obtained and reviewed patient's medication list and reconciled patient medicine. Laboratory results however is somewhat incomplete. Patient taking medication as instructed, including new medication of Eliquis and metoprolol. Patient denied further episode of chest discomfort, his activity level is good. He tried to be active to lose weight which is ongoing struggle. P zayda had nuclear stress test scheduled soon. His burner technician is Dr. July Bell. Patient denied any loss of balance fall or injury. He denied any bleeding. 1 a flutter with rapid ventricular response. Rate appears to be controlled. I tried my best to answer patient many questions, I will need to review most recent cardiology note. We clearly need to rule out ischemia in this patient with multiple risk factors.. We may consider sleep study. Extensive discussion today. Pt's multiple questions answerred to my best ability. Warning symptoms discussed that would need immediate reevaluation, including ER visit. 2 metabolic syndrome, clinically stable strongly encouraged patient's effort to lose weight I will check A1c 3 Patient also presents for a blood pressure check. Patient is tolerating medications well. No specific side effects or complains. Tolerating addition of beta-blockade. I will monitor renal function. Discussed patient's Eliquis potential side effects potential need for this medication based upon renal function. I will monitor his CBC as well 4 discussed potential weather change, I want the patient to use Flonase nasal spray consistently. 5 discussed the patient's history of elevated PSA at age 88. Patient just recently saw his urologist last week. I prefer to monitor patient clinically. Orders Placed This Encounter Procedures ??? Comprehensive metabolic panel ??? CBC and differential ??? Hemoglobin A1c ADDITIONAL ORDERS: None Marlene Arreola MD on 03/14/2024 at 12:25 PM EST documented in this encounter Plan of Treatment Upcoming Encounters Date Type Department Care Team (Late st Contact Info) Description 05/24/2024 9:15 AM EDT Office Visit [facility] [address] [id number] Paolo Rosales MD [address] [facility] [address] [place] [id number] 09/21/2024 8:30 AM EDT Office Visit Adult Medicine [facility] [address] [place] [address] Marlene Arreola MD [address], [place] Scheduled Orders Name Type Priority Associated Diagnoses Orde r Schedule Comprehensive metabolic panel Lab Routine Stage 3 chronic kidney disease, unspecified whether stage 3a or 3b CKD (CMS/HCC) Atrial flutter, unspecified type (CMS/HCC) 1 Occurrences starting 03/14/2024 until 03/14/2025 CBC and differential Lab Routine Atrial flutter, unspecified type (CMS/HCC) 1 Occurrences starting 03/14/2024 until 03/14/2025 Hemoglobin A1c Lab Routine Metabolic syndrome Essential hypertension, benign Stage 3 chronic kidney disease, unspecified whether stage 3a or 3b CKD (CMS/HCC) Hyperglycemia 1 Occurrences starting 03/14/2024 until 03/14/2025 documented as of this encounter Visit Diagnoses Diagnosis Metabolic syndrome- Primary Dysmetabolic Syndrome X Pure hypercholesterolemia Essential hypertension, benign Stage 3 chronic kidney disease, unspecified whether stage 3a or 3b CKD (CMS/HCC) Atrial flutter, unspecified type (CMS/HCC) Upper respiratory tract infection, unspecified type PSA elevation Hyperglycemia Other abnormal glucose Patient has healthcare proxy documented in this encounter Discontinued Medications Medication Sig Discontinue Reason Start Date End Da te fluticasone propionate (FLONASE) 50 mcg/actuation nasal spray 2 PUFFS EACH NOSTRIL EVERY 12 HRS NEEDED Reorder 09/29/2022 03/14/2024 documented as of this encounter Historical Medications * This list may reflect changes made after this encounter. metoprolol tartrate (LOPRESSOR) 25 mg tablet Take 1 tablet (25 mg total) by mouth 2 (two) times a day. apixaban (ELIQUIS) 2.5 mg tablet Take 1 tablet (2.5 mg total) by mouth 2 (two) times a day. added in this encounter Additional Health Concerns Assessment Noted Time PHQ-9 Depression Total Score: 0 03/14/19 25 9:13 AM EST A fall risk assessment has been complete d for the patient 03/14/2024 9:12 AM EST documented as of this encounter Care Teams Mac Developer Relationship Specialty Start Date End Date Marlene Arreola MD [address] [place] [address] PCP - General 11/17/1998 documented as of this encounter
--- OUTSIDE RECORDS SUMMARY | 2024-04-05 10:18 | XMS_ITS | Clinical Summary ---
Demographics Address [address] [place] [address] Home Phone Work Phone Mobile Phone Home Phone Mobile Phone Email Address Preferred Language en Marital Status Hinduism Affiliation Unknown Race White Ethnic Group Not or Lati no Author Organization [address] [place] [address] Phone Care Team Providers Care Executive Director Of Nursing Name Role Phone Marlene Arreola MD Primary Care Provider [phone] Allergies No known active allergies Medications dapagliflozin propanediol (FARXIGA) 5 mg tablet Take 5 mg by mouth daily. 06/02/19 24 Active amoxicillin (AMOXIL) 500 mg capsule (PRE MED)TAKE 4 CAPSULES (2 GRAM) BY ORAL ROUTE 1 HOUR PRIOR TO PROCEDURE 10/29/19 23 Active potassium citrate (UROCIT-K) 10 mEq (1,080 mg) CR tablet 04/22/19 23 Active acetaminophen (TYLENOL) 325 mg tablet Take 650 mg by mouth every 6 hours as needed. Active glucosamine sulfate 2KCl (Glucosamine Relief) 500 mg capsule Take 1 tablet by mouth 2 times daily. Active ascorbic acid (VITAMIN C) 1,000 mg tablet 1 TABLET DAILY Active lisinopriL (PRINIVIL,ZEST RIL) 30 mg tablet Take 1 Tablet by mouth daily for 180 days. - Active allopurinoL (ZYLOPRIM) 100 mg tablet Take 1 tablet (100 mg total) by mouth 1 (one) time each day. 90 tablet 1 01/01/20 24 Active hydroCHLOROthi azide (HYDRODIURIL) 25 mg tablet Take 1 tablet (25 mg total) by mouth 1 (one) time each day. 90 tablet 1 01/01/20 24 Active rosuvastatin (CRESTOR) 5 mg tablet Take 1 tablet (5 mg total) by mouth 1 (one) time each day. 90 tablet 1 01/01/20 24 Active tamsulosin (FLOMAX) 0.4 mg 24 hr capsule Take 1 capsule (0.4 mg total) by mouth 1 (one) time each day. should be taken 30 minutes following the same meal each day. 90 capsule 1 01/01/20 24 Active apixaban (ELIQUIS) 2.5 mg tablet Take 1 tablet (2.5 mg total) by mouth 2 (two) times a day. Active metoprolol tartrate (LOPRESSOR) 25 mg tablet Take 1 tablet (25 mg total) by mouth 2 (two) times a day. Active fluticasone propionate (FLONASE) 50 mcg/actuation nasal spray ADMINISTER 1 SPRAY INTO EACH NOSTRIL 2 (TWO) TIMES A DAY. SHAKE GENTLY. BEFORE FIRST USE, PRIME PUMP. AFTER USE, CLEAN TIP AND REPLACE CAP.2 16 g 2 03/16/19 25 Active fluticasone propionate (FLONASE) 50 mcg/actuation nasal spray 2 PUFFS EACH NOSTRIL EVERY 12 HRS NEEDED 09/30/19 23 025 Discontinued(Re order) fluticasone propionate (FLONASE) 50 mcg/actuation nasal spray Administer 1 spray into each nostril 2 (two) times a day. Shake gently. Before first use, prime pump. After use, clean tip and replace cap.2 PUFFS EACH NOSTRIL EVERY 12 HRS NEEDED 16 g 2 03/14/19 25 025 Discontinued Active Problems Problem Noted Date Diagnosed Date Arterial calcification 07/28/2022 Overview (11/12/2023): Extensive bilateral lower extremity arterial calcifications seen on x-ray ordered by orthopedics on 07/24/2022. Mixed hyperlipidemia 03/25/2022 Benign prostatic hyperplasia without lower urinary tract symptoms 11/18/2021 Hyperuricemia 11/18/2021 Hypertriglyceridemia 06/17/2021 Metabolic syndrome 08/29/2020 Assessment & Plan (03/14/2024 12:26 PM EST): Orders: Hemoglobin A1c; Future CKD (chronic kidney disease) stage 3, GFR 30-59 ml/min 02/01/2019 Assessment & Plan (03/14/2024 12:26 PM EST): Orders: Comprehensive metabolic panel; Future Hemoglobin A1c; Future Urinary retention 02/01/2019 Hearing loss 05/14/2017 Pneumonia 05/14/2017 Bilateral kidney masses 02/21/2009 Overview (11/12/2023): Recent US 01/24, follows with Dr. Marcum Elevated PSA 04/29/2007 Overview (11/12/2023): Followed by urology, e2iocdr PSA, Dr. Marcum Calculus of kidney 09/09/2005 Essential hypertension, benign 09/09/2005 Assessment & Plan (03/14/2024 12:26 PM EST): Orders: Hemoglobin A1c; Future Pure hypercholesterolemia 09/09/2005 Assessment & Plan (03/14/2024 12:26 PM EST): Encounters Date Type Department Care Team Description 03/14/2024 9:00 AM EST Office Visit Adult Medicine [address] [address] Marlene Arreola MD Metabolic syndrome (Primary Dx); Pure hypercholesterolemia; Essential hypertension, benign; Stage 3 chronic kidney disease, unspecified whether stage 3a or 3b CKD (CMS/HCC); Atrial flutter, unspecified type (CMS/HCC); Upper respiratory tract infection, unspecified type; PSA elevation; Hyperglycemia; Patient has healthcare proxy 02/03/2024 Telephone Adult Medicine [address] [address] Miley Martínez MA from Last 3 Months Immunizations Name Administration Dates Next Due Hepatitis B (Lclagmh-N-Nkrjg , Recombivax HB-Adult) 19yo and older 12/09/2000,10/05/2000 Influenza Quadravalent, MDCK , 0.5ml, with preservative (Flucelvax) 6mo and older 11/30/2017,11/25/2016 Influenza trivalent, 0.5mL ( Fluzone High-dose) 65yo and older 12/15/2022,11/03/2018,11/21/2015 Influenza trivalent, with pr eservative (Fluzone; Afluria) 6mo and older 11/22/2014,11/21/2013,12/28/2012,03/09,12/11/2010,11/27/2009 Influenza, Unspecified 11/11/2021,10/10/2019 Pfizer SARS-CoV-2 COVID-19, mRNA, LNP-S, preservative free 04/17/2020,03/27/2020 Pneumococcal conjugate 20 va lent (Prevnar 20, PCV 20) 2mo and older 12/15/2022 Pneumococcal polysaccharide 23 valent (Pneumovax 23) 2yo and older 08/25/2006 Td Tetanus diptheria (Tdvax) 7yo and older 08/22/2010,10/05/2000 Tdap Tetanus diptheria acell ular pertussis (Boostrix; Adacel) 7yo and older 12/28/2012 Surgical History Surgery Date Site/Laterality Comments COLONOSCOPY 04/15/07 PROCEDURE: IN COLONOSCOPY STOMA DX INCLUDING COLLJ SPEC SPX; COMMENT: Up to cecum, good preparation, mild diverticulosis, otherwise normal OTHER SURGICAL HISTORY PROCEDURE: HISTORICAL CA BASAL CELL; COMMENT: BCC right ankle Medical History Medical History Date Comments Pure hypercholesterolemia DX:Pur e hypercholesterolemia Essential hypertension, benign D X:Essential hypertension, benign Other chronic nonalcoholic l iver disease DX:Other chronic nonalcoholi c liver disease; COMMENT: fatty liver Calculus of kidney 09/09/2005 DX:Calculus o f kidney Historical Medical DX DX:Other a nd unspecified malignant neoplasm of skin of other and unspecified parts of face History of basal cell carcinoma 11/25/2005 DX:History of basal cell carcinoma; COMMENT: IMO update History of actinic keratoses 01/17/2019 DX: History of actinic keratoses Family History Medical History Relation Name Comments Hyperlipidemia Brother Other: alzeheimer's disease Father at age 92 Heart attack Mother at age late 40 Hyperlipidemia Mother Heart attack Uncle Relation Name Status Comments Brother Father Mother Uncle Social History Tobacco Use Types Packs/Day Years [...] on file Sexual Orientation Not on file Obstetrics History Last Filed Vital Signs Vital Sign Reading [...] Mass Index 28.04 03/14/2024 8:57 AM EST Plan of Treatment Upcoming Encounters Date Type Department Care Team (Late st Contact Info) Description 05/24/2024 9:15 AM EDT [facility] [address] [place] [address] Paolo Rosales MD [address] [address] 09/21/2024 8:30 AM EDT Office Visit Adult Medicine [address] [phone] Marlene Arreola MD [address] [place] [address] Health Maintenance Due Date Last Done Comments Hepatitis B Vaccines (3 of 3 - 19+ 3-dose series) 04/07/2001 12/09/2000, 10/05/2000 RSV Immunization Patients 60+ Years Old (1 - 1-dose 75+ series) 2012 Zoster Vaccines (2 of 2) 02/27/2020 01/02/2020 Social Influencers of Health Screening 01/25/2022 DTaP,Tdap,and Td Vaccines (4 - Td or Tdap) 12/28/2022 12/28/2012, 08/22/2010, 10/05/2000 Hypertension/CHF/CAD Annual BMP Blood Test 05/17/2024 05/18/2023 Depression Screening 03/14/2025 03/14/2024 Falls Risk Assessment 03/14/2025 03/14/2024 Medicare Annual Wellness Visit 03/14/2025 03/14/2024 Cholesterol Screening (Lipid Panel) 05/17/2028 05/18/2023 Pneumococcal Vaccine: 50+ Years Completed 12/15/2022, 08/25/2006 COVID-19 Vaccine Completed 11/10/2023, , 11/14/2020, Additional history exists Influenza Vaccine Completed 11/10/2023, , 11/11/2021, Additional history exists HIB Vaccines Aged Out No longer eligi ble based on patient's age to complete this topic HPV Vaccines Aged Out No longer eligi ble based on patient's age to complete this topic Hepatitis A Vaccines Aged Out No long er eligible based on patient's age to complete this topic IPV Vaccines Aged Out No longer eligi ble based on patient's age to complete this topic MMR Vaccines Aged Out No longer eligi ble based on patient's age to complete this topic Meningococcal ACWY Vaccine Aged Out N o longer eligible based on patient's age to complete this topic Meningococcal B Vacine Aged Out No lo nger eligible based on patient's age to complete this topic RSV Immunization Patients Under 20 months Aged Out No longer eligible based on patient's age to complete this topic Varicella Vaccines Aged Out No longer eligible based on patient's age to complete this topic Procedures Procedure Name Priority Date/Time Associated Diagnosis Comments ANNUAL BMP BLOOD TEST Routine 05/18/2023 LIPID PANEL Routine 05/18/2023 from Last 3 Months or Most Recently Relevant to Health Maintenance Results * Annual BMP Blood Test (05/18/2023) Annual BMP Blood Test abstracted us Historical Provider HEALTH MAINTENANCE Final Result * (ABNORMAL) Lipid panel (05/18/2023) LDL/HDL Ratio 4 0 - 4 Triglycerides 292(A) 0 - 150 mg/dL Cholesterol 190 0 - 200 mg/dL HDL 44 >=40 mg/dL LDL Cholesterol 88 0 - 100 mg/dL Blood Venous blood specimen / Unknown us Historical Provider LAB BLOOD ORDERABLES Gricelda l Result from Last 3 Months or Most Recently Relevant to Health Maintenance Insurance * Guarantor: Jose Robins Account Type Relation to Patient Date of Phone Billing Address Personal/Family Self 1935 [address] [place] [address] [employer] - [place] MEDICARE ADVANTAGE Care Teams Executive Director Of Nursing Relationship Specialty Start Date End Date Marlene Arreola MD [address] [place] [address] PCP - General 11/17/1998
--- OUTSIDE RECORDS SUMMARY | 2024-04-05 10:18 | XMS_ITS | Clinical Summary ---
Demographics Address [address] [place] [address] Mobile Phone Email Address Preferred Language Portuguese Marital Status Unknown Spiritism Affiliation Unknown Race Unknown Ethnic Group Unknown Author Organization [facility] Address [address] [place] [address] Care Team Providers Care Skate Shop Attendant Name Role Phone Marlene Arreola MD Primary Care Provider [phone] Allergies No known active allergies Medications Medication Sig Dispensed Refills Start Date End Date Status cloNIDine (CATAPRES) 0.1 MG tablet 02/22/2021 Active fluticasone (FloNASE) 50 mcg/spray nasal spray 02/22/2021 Active hydrochlorothiazide (HYDRODIURIL) 25 MG tablet 02/22/2021 Active lisinopril (PRINIVIL,ZeSTRIL) 10 MG tablet 02/22/2021 Active potassium citrate (UROCIT-K) 10 MEQ (1080 MG) ER tablet 04/12/2021 Active rosuvastatin (CRESTOR) 5 MG tablet 02/22/2021 Active tamsulosin (FLOMAX) 0.4 MG capsule 03/30/2021 Active predniSONE (DELTASONE) 20 MG tabletIndications:Acute gout involving toe of right foot, unspecified cause Take 3 tabs for 2 days, 2 tabs for 2 days and 1 tab for 3 days With food. 13 tablet 04/25/2021 Active Active Problems No known active problems Social History Tobacco Use Types Packs/Day Years Used Date Smoking Tobacco: Never Smokeless Tobacco: Former Alcohol Use Standard Drinks/Week Comments Not Currently 0 (1 standard drink = 0.6 oz pur e alcohol) Sex and Gender Information Value Date Recorded Sex Assigned at Not on file Gender Identity Not on file Sexual Orientation Not on file Last Filed Vital Signs Vital Sign Reading Time Taken Comments Blood Pressure 153/83 04/25/2021 12:23 PM EST Pulse 65 04/25/2021 12:23 PM EST Temperature 36.4 ??C (97.5 ??F) 04/25/2021 12:[address] Respiratory Rate - - Oxygen Saturation 99% 04/25/2021 12:23 PM EST Inhaled Oxygen Concentration - - Weight 83 kg (183 lb) 04/25/2021 12:23 PM EST Height 172.7 cm (5' 8 ) 04/25/2021 12:23 PM EST Body Mass Index 27.83 04/25/2021 12:23 PM EST Plan of Treatment Health Maintenance Due Date Last Done Comments DTaP/Tdap/Td Vaccines (1 - Tdap) 1956 Pneumococcal Vaccines 50+ (1 of 1 - PCV) 10/04/1987 Zoster (Shingles) Vaccine (1 of 2) 10/04/1987 RSV Vaccine 60 years and old er and Patients (1 - 1-dose 75+ series) 2012 Influenza Vaccine 09/17/2023 COVID-19 Vaccine ( - 2023-2 5 season) 2023 Hepatitis B Vaccines Aged Out No long er eligible based on patient's age to complete this topic Guarantor Name Account Type Relation to Patient Date of Phone Billing Address PageJose Personal/Family Self 1935 [address] [place] [address] Care Teams Skate Shop Attendant Relationship Specialty Start Date End Date Marlene Arreola MD [address] [place] [address] [phone] PCP - General 04/25/21
== END ==
LOC: HO.CARD 09:34
PROVIDERS: Visit Provider Nurse Practitioner Family
DX: I48.91 Unspecified atrial fibrillation (principal); I48.92 Unspecified atrial flutter
CPT/HCPCS: 78452; 93017; A9500; J0280; J2785

== ENCOUNTER → 2024-04-05 09:37 | Outpatient (BNV) | payer MEDICARE, SELFPAY | DX: R94.31 Abnormal electrocardiogram [ECG] [EKG] (principal) | CPT/HCPCS: 78452; 93016; 93018 ==

== ENCOUNTER 2024-04-19 09:00 | Outpatient (AMB) | payer MEDICARE, SELFPAY ==
[2024-04-19 09:07] VITALS: BP 120/60; PULSE 70; BMI 27.8
--- NOTE | 2024-04-19 09:07 | A.OFFVIS_ITS ---
Vital Signs 04/19/24 09:07 Height 5 ft 8 in Weight 182 lb 15.739 oz BMI 27.8 BP 120/60 Blood Pressure Location Lt brachial Position Sitting Pulse 70 Pulse Source Pulse Oximeter Intake Visit Reasons: 3m follow up/ Mibi Contract Analyst Required: No Drywall Boardhanger: Drywall Boardhanger Present Allergies No Known Allergies Allergy (Verified 04/19/24 09:09) Medication List - Last Reconciled 04/19/24 by Shala Wilson NP-C acetaminophen 650 mg PO Q6H PRN allopurinol 100 mg PO DAILY apixaban (Eliquis) 2.5 mg PO BID dapagliflozin propanediol (Farxiga) 5 mg PO DAILY hydrochlorothiazide 25 mg PO DAILY lisinopril 30 mg PO DAILY metoprolol tartrate 25 mg See Protocol PO BID potassium citrate ER 10 mEq PO BID rosuvastatin 5 mg PO BEDTIME tamsulosin 0.4 mg PO BEDTIME HPI HPI 3m follow up/ Mibi: Details: Jose is an 88-year-old male with past medical history of hypertension, hyperlipidemia, newer finding atrial fibrillation, treated with rate control who presents for follow-up after recent nuclear stress test. Today he reports he has been doing well since his last visit in December. He notices some mild fatigue which he relates to his age. This is not a new symptom for him. He denies any shortness of breath, PND, orthopnea or edema. He has no lightheadedness, no palpitations, presyncope, syncope, falls. No chest discomfort at rest or with activity. No bleeding issues with anticoagulation use. Describes himself as being active throughout the day. Meds as directed. is present. [facility] Medical History CKD (chronic kidney disease) BPH (benign prostatic hyperplasia) Gout Mixed hyperlipidemia Hypertension Family History Father No problems noted. Mother Myocardial infarction Social History Patient Tobacco Use Status: Never used Tobacco service: No Review of Systems Const All systems reviewed & are unremarkable except as noted in HPI and below ENT Denies dizziness Card Denies chest pain, Denies chest pain at rest, Denies chest pain with activity, Denies rapid heart rate, Denies pedal edema, Denies edema, Denies leg edema, Denies lightheadedness, Denies palpitations, Denies dyspnea, Denies dyspnea on exertion and Denies orthopnea Resp Denies cough, Denies dyspnea and Denies dyspnea on exertion GI Denies hematochezia and Denies change in stool character Musc Denies abnormal gait, Denies limited range of motion, Denies muscle cramps, Denies muscle weakness, Denies numbness, Denies radiating pain into limb, Denies stiffness and Denies tingling Neuro Denies abnormal gait, Denies dizziness, Denies numbness and Denies tingling Endo Denies palpitations Physical Exam Vital Signs: Last Vital Signs Pulse 70 04/19/24 09:07 BP 120/60 04/19/24 09:07 BMI result Body Mass Index 27.8 Const General: cooperative, healthy appearing, comfortable and no acute distress Orientation/consciousness: patient oriented x3 Neck Neck: Yes normal visual inspection Resp Effort & Inspection: normal respiratory effort Auscultation: clear to auscultation bilaterally, no crackles, no rales, no rhonchi and no wheezes Cardio Jugular venous distension: no JVD Rate: regular rate Rhythm: abnormal rhythm Heart sounds: S1 normal heart sound present, S2 normal heart sound present, no murmurs and no rubs Neuro General: patient oriented x3 Extrem General: Yes normal to inspection and No no pedal edema Psych Appearance: grossly normal Mental Status: mental status grossly normal Speech and movement: Normal speech and movement present Office Procedures EKG Details: Today, read by me, sinus bradycardia, left axis deviation, rate 50, QTC 371 millisecond [id number], Complete Assessment & Plan Assessment & Plan (1) Atrial fibrillation and flutter: Code(s): I48.91 - Unspecified atrial fibrillation; I48.92 - Unspecified atrial flutter Category: Medical Plan: Newer finding of atrial fibrillation has been treated with heart rate control. Echocardiogram showed EF 55-60%, no valve abnormalities, atria normal size. Holter monitor done 12/11/2023 for 3 days shows atrial fibrillation with average heart rate 73, pauses noted, longest 4.2 seconds during sleep, rare PVC. He was maintained on metoprolol tartrate 25 mg b.i.d. for heart rate control and Eliquis 2.5 mg b.i.d. for anticoagulation. Last known creatinine elevated at 1.72. EKG done today is showing sinus bradycardia, rate 50, asymptomatic. In the absence of symptoms will continue on current med management. If he does have symptoms then the metoprolol dose can be reduced. Cardiology follow-up 6 months sooner if needed. ischemia Going forward will check a pharmacological nuclear stress test to assess for any ischemia. He has no known cardiac history prior to his finding of atrial flutter/fibrillation. Cardiology follow-up 3 months, sooner if needed. (2) Abnormal nuclear stress test: Code(s): R94.39 - Abnormal result of other cardiovascular function study Category: Medical Plan: Nuclear stress test done as part of evaluation for new AFib. He reports significant family history heart disease however no known personal history beyond AFib. Nuclear stress test 04/05/24 shows mixed ischemia/infarct pattern in the inferior wall. Towards the basal to mid portion, fixed defect suggesting infarct. At the inferior apex, reversible, suggesting ischemia. Test results reviewed with him in detail. He is currently completely asymptomatic. Will medically manage at this time. He is not on aspirin as he is on Eliquis. He is on rosuvastatin and metoprolol. Signs and symptoms of angina reviewed. (3) Hypertension: Code(s): I10 - Essential (primary) hypertension Category: Medical Plan: History of hypertension. Blood pressure currently well controlled. Continue metoprolol, hydrochlorothiazide (4) Mixed hyperlipidemia: Code(s): E78.2 - Mixed hyperlipidemia Category: Medical Plan: Howes LDL goal less than 70. No cholesterol profile in our system. Typically followed by his PCP. He is on rosuvastatin 5 mg daily. Will have him continue that dose. Recommend increasing dose if LDL not well controlled. Will forward this note to his PCP. Plan Time spent on chart review, documentation, interview and assessment Coding Level of Care Code Est Pt Level 4 (89582) Complex EM visit Add On G2211 Diagnoses Atrial fibrillation and flutter I48.91; I48.92 Abnormal nuclear stress test R94.39 Hypertension I10 Mixed hyperlipidemia E78.2 CPT Codes EKG - CPT: 12260-[id number], Complete ([id number]) Time Spent (min) 32
--- OUTSIDE RECORDS SUMMARY | 2024-04-19 09:56 | XMS_ITS | Clinical Summary ---
Demographics Address [address] [place] [address] Mobile Phone Email Address Preferred Language Dutch Marital Status Unknown Hinduism Affiliation Unknown Race Unknown Ethnic Group Unknown Author Organization [facility] Address [address] [place] [address] Care Team Providers Care Rock Wool Applicator Name Role Phone Marlene Arreola MD Primary Care Provider [phone] Allergies No known active allergies Medications Medication [...] Address PageJose Personal/Family Self 1935 [address] [place] [address] Care Teams Rock Wool Applicator Relationship Specialty Start Date End Date Marlene Arreola MD [address] [place] [address] [phone] PCP - General 04/25/21
--- OUTSIDE RECORDS SUMMARY | 2024-04-19 09:56 | XMS_ITS | Clinical Summary ---
Demographics Address [address] [place] [address] Home Phone Work Phone Mobile Phone Home Phone Mobile Phone Email Address Preferred Language en Marital Status Jewish Affiliation Unknown Race White Ethnic Group Not or Lati no Author Organization [address] Address [address] [place] [phone] Phone Care Team Providers Care Options Advisor Name Role Phone Marlene Arreola MD Primary Care Provider [phone] Allergies No known active allergies Medications dapagliflozin propanediol (FARXIGA) 5 mg tablet Take 5 mg by mouth daily. 4 Active amoxicillin (AMOXIL) 500 mg capsule (PRE MED)TAKE 4 CAPSULES (2 GRAM) BY ORAL ROUTE 1 HOUR PRIOR TO PROCEDURE 3 Active potassium citrate (UROCIT-K) 10 mEq (1,080 mg) CR tablet 3 Active acetaminophen (TYLENOL) 325 mg tablet Take 650 mg by mouth every 6 hours as needed. Active glucosamine sulfate 2KCl (Glucosamine Relief) 500 mg capsule Take 1 tablet by mouth 2 times daily. Active ascorbic acid (VITAMIN C) 1,000 mg tablet 1 TABLET DAILY Active lisinopriL (PRINIVIL,ZESTRI L) 30 mg tablet Take 1 Tablet by mouth daily for 180 days. - Active allopurinoL (ZYLOPRIM) 100 mg tablet Take 1 tablet (100 mg total) by mouth 1 (one) time each day. 90 tablet 1 4 Active hydroCHLOROthiaz yesi (HYDRODIURIL) 25 mg tablet Take 1 tablet (25 mg total) by mouth 1 (one) time each day. 90 tablet 1 4 Active rosuvastatin (CRESTOR) 5 mg tablet Take 1 tablet (5 mg total) by mouth 1 (one) time each day. 90 tablet 1 4 Active tamsulosin (FLOMAX) 0.4 mg 24 hr capsule Take 1 capsule (0.4 mg total) by mouth 1 (one) time each day. should be taken 30 minutes following the same meal each day. 90 capsule 1 4 Active apixaban (ELIQUIS) 2.5 mg tablet Take [...] TIP AND REPLACE CAP.2 16 g 2 5 Active Active Problems Problem Noted Date Diagnosed Date [...] PSA 04/29/2007 Overview (11/12/2023): Followed by urology, [id number] PSA, Dr. Marcum Calculus of kidney 09/09/2005 Essential hypertension, benign 09/09/2005 Assessment & Plan (03/14/2024 12:26 PM EST): Orders: Hemoglobin A1c; Future Pure hypercholesterolemia 09/09/2005 Assessment & Plan (03/14/2024 12:26 PM EST): Encounters Date Type Department Care Team Description 03/14/2024 9:00 AM EST Office Visit Adult Medicine [address] [phone] Marlene Arreola MD Metabolic syndrome (Primary Dx); Pure hypercholesterolemia; Essential hypertension, benign; Stage 3 chronic kidney disease, unspecified whether stage 3a or 3b CKD (CMS/HCC); Atrial flutter, unspecified type (CMS/HCC); Upper respiratory tract infection, unspecified type; PSA elevation; Hyperglycemia; Patient has healthcare proxy 02/03/2024 Telephone Adult Medicine [address] [phone] Miley Martínez MA from Last 3 Months Immunizations Name Administration Dates Next Due Hepatitis B (Pamxbpd-J-Vqoxp , Recombivax HB-Adult) 19yo and older 12/09/2000,10/05/2000 [...] Surgery Date Site/Laterality Comments COLONOSCOPY 04/15/07 PROCEDURE: ME COLONOSCOPY STOMA DX INCLUDING COLLJ SPEC SPX; [...] EDT Office Visit [facility] [address] [facility] [place] [phone] Paolo Rosales MD [address] [phone] 09/21/2024 8:30 AM EDT Office Visit Adult Medicine [facility] [address] [place] [address] Marlene Arreola MD [address] [place] [address] Health Maintenance Due Date Last Done Comments [...] Results * Annual BMP Blood Test (05/18/2023) Pathologist [facility] Annual BMP Blood Test abstracted Historical Provider HEALTH MAINTENANCE Final Result * (ABNORMAL) Lipid panel (05/18/2023) [facility] LDL/HDL Ratio 4 0 - 4 Triglycerides 292(A) 0 - 150 mg/dL Cholesterol 190 0 - 200 mg/dL HDL 44 >=40 mg/dL LDL Cholesterol 88 0 - 100 mg/dL Blood Venous blood specimen / Unknown Historical Provider LAB BLOOD ORDERABLES Gricelda l Result from Last 3 Months or Most Recently Relevant to Health Maintenance Insurance * Guarantor: Jose Robins Account Type Relation to Patient Date of Phone Billing Address Personal/Family Self 1935 [address] [place] [address] [employer] Care Teams Options Advisor Relationship Specialty Start Date End Date Mralene Arreola MD [address] [place] [address] PCP - General 11/17/1998
== END 2024-04-19 09:44 | disposition home or self-care (01) ==
PROVIDERS: PCP Internal Medicine; Visit Provider Nurse Practitioner Family
DX: I48.91 Unspecified atrial fibrillation (principal); I48.92 Unspecified atrial flutter; R94.39 Abnormal result of other cardiovascular function study; I10 Essential (primary) hypertension; E78.2 Mixed hyperlipidemia
CPT/HCPCS: 93010; 99214; G2211

== ENCOUNTER → 2024-04-19 09:00 | Outpatient (BNVA) | payer MEDICARE, SELFPAY | PROVIDERS: PCP Internal Medicine; Visit Provider Nurse Practitioner Family | DX: I48.91 Unspecified atrial fibrillation (principal); I48.92 Unspecified atrial flutter; R94.39 Abnormal result of other cardiovascular function study; I10 Essential (primary) hypertension; E78.2 Mixed hyperlipidemia; R00.1 Bradycardia, unspecified; R94.31 Abnormal electrocardiogram [ECG] [EKG] | CPT/HCPCS: 93005; 99212 ==

== ENCOUNTER 2024-09-12 09:58 | Emergency (ER) | payer MEDICARE, SELFPAY ==
[2024-09-12] VITALS (7 sets, daily range): BP systolic 126–154; BP diastolic 65–78; PULSE 48–58; RESP 13–17; TEMP 36.3–36.6; O2SAT 98; BMI 27.9
--- NOTE | 2024-09-12 09:59 | ECG_ITS ---
Test Reason : TACHY Blood Pressure : */* mmHG Vent. Rate : 55 BPM Atrial Rate : 55 BPM P-R Int : 188 ms QRS Dur : 88 ms QT Int : 424 ms P-R-T Axes : * -52 29 degrees QTcB Int : 405 ms Sinus bradycardia Left axis deviation Cannot rule out Anterior infarct (cited on or before 29-Nov-2023) Abnormal ECG When compared with ECG of 29-Nov-2023 23:10, Sinus rhythm has replaced Atrial flutter Incomplete right bundle branch block is no longer Present Referred By: Generic ED Physician Electronically Signed By: JAYLEN KIRK MD
[2024-09-12 10:39] LABS: MANUAL DIFF FLAG NO
[2024-09-12 10:42] LABS: Hematocrit 40.8 % (42.0-52.0); Hemoglobin 13.4 g/dl (14.0-18.0); Imm Gran Abs Auto 0.01 X10*3/uL (0.00-0.03); Imm Gran Pct Auto 0.2 % (0.0-0.4); Lymphocytes Absolute Auto 1.2 X10*3/uL (1.2-4.9); Mean Corpuscular HGB Conc 32.8 g/dl (31.0-36.0); Mean Corpuscular Hemoglobin 30.9 pg (27.0-33.0); Mean Corpuscular Volume 94.0 fL (80.0-98.0); NRBC Abs Auto 0.000 X10*3/uL (0.0-0.012); NRBC Pct Auto 0.0 /100WBC (0.0-0.2); Platelet Count 208 X10*3/uL (160-400); Red Blood Count 4.34 X10*6/uL (4.60-5.80); White Blood Count 4.9 X10*3/uL (4.8-10.8)
[2024-09-12 10:59] LABS: Anion Gap 13 (12-20); Blood Urea Nitrogen 36 mg/dL (9-16); Calcium 9.3 mg/dL (8.4-10.2); Carbon Dioxide 22 mmol/L (22-29); Chloride 108 mmol/L (96-108); Creatinine Clr Calc Pharmacy 34.5; Estimated Glomerular Filt Rate 42; Potassium 4.4 mmol/L (3.3-5.1); Sodium 139 mmol/L (135-145)
--- OUTSIDE RECORDS SUMMARY | 2024-09-12 13:04 | XMS_ITS | Clinical Summary ---
Demographics Address [address] [place] [address] Mobile Phone Email Address Preferred Language Salvadorean Marital Status Unknown Jew Affiliation Unknown Race Unknown Ethnic Group Unknown Author Organization [facility] Address [address] [place] [id number] Care Team Providers Care Manager Protein Name Role Phone Marlene Arreola MD Primary Care Provider Unavailabl e Allergies No known active allergies Medications cloNIDine (CATAPRES) 0.1 MG tablet 2 Active fluticasone (FloNASE) 50 mcg/spray nasal spray 2 Active hydrochlorothiaz yesi (HYDRODIURIL) 25 MG tablet 2 Active lisinopril (PRINIVIL,ZeSTRI L) 10 MG tablet 2 Active potassium citrate (UROCIT-K) 10 MEQ (1080 MG) ER tablet 2 Active rosuvastatin (CRESTOR) 5 MG tablet 2 Active tamsulosin (FLOMAX) 0.4 MG capsule 2 Active predniSONE (DELTASONE) 20 MG tabletIndication s:Acute gout involving toe of right foot, unspecified cause Take 3 tabs for 2 days, 2 tabs for 2 days and 1 tab for 3 days With food. 13 tablet 2 Active Additional Information Patient not taking.Reported on 07/28/2024 Eliquis 2.5 MG tablet Take 2.5 mg by mouth 2 times a day. Active allopurinol (ZYLOPRIM) 100 mg tablet Take 100 mg by mouth. 5 Active metoPROLOL TARTRATE (LOPRESSOR) 25 MG tablet Take 25 mg by mouth 2 times a day. Active Active Problems No known active problems Encounters Date Type Department Care Team Description 07/28/2024 8:00 AM EDT Office Visit [facility] [place] [address] Willian Serna MD Liquori, Angela M, PA-C Erythema migrans (Lyme disease) (Primary Dx) 07/28/[address] [place] [id number] Provider, Generic 07/28/2024 Travel from Last 3 Months Social History Tobacco Use Types Packs/Day Years Used Date Smoking Tobacco: Never Smokeless Tobacco: Former Tobacco Cessation:Counseling Given: Not Answered Alcohol Use Standard Drinks/Week Comments Not Currently 0 (1 standard drink = 0.6 oz pur e alcohol) Sex and Gender Information Value Date Recorded Sex Assigned at Not on file Legal Sex Male 12:13 PM EST Gender Identity Not on file Sexual Orientation Not on file Last Filed Vital Signs Vital Sign Reading Time Taken Comments Blood Pressure 133/80 07/28/2024 8:10 AM EDT Pulse 67 07/28/2024 8:10 AM EDT Temperature 36.9 C (98.5 F) 07/28/2024 8:10 AM EDT Respiratory Rate 14 07/28/2024 8:10 AM EDT Oxygen Saturation 96% 07/28/2024 8:10 AM EDT Inhaled Oxygen Concentration - - Weight 83 [...] 2) 10/04/1987 RSV Vaccine 60 years and older and Patients (1 - 1-dose 75+ series) 2012 COVID-19 Vaccine (4 - season) 2023 12/12/2021, 04/17/2020, 03/27/2020 Influenza Vaccine 09/16/2024 12/15/2022, , 10/10/2019, Additional history exists Hepatitis B Vaccines Aged Out No long er eligible based on patient's age to complete this topic Insurance * Guarantor: Julienne Jose Account Type Relation to Patient Date of Phone Billing Address Personal/Family Self 1935 [address] [place] [address] [employer]UE [employer]OSS MEDIBLUE D MEDICARE [employer] [place] MEDICARE OUT OF NETWORK Care Teams Manager Protein Relationship Specialty Start Date End Date Marlene Arreola MD PCP - General 04/25/21
--- OUTSIDE RECORDS SUMMARY | 2024-09-12 13:04 | XMS_ITS ---
Demographics Address [address] [place] [address] Email Address Preferred Language Unknown Marital Status Unknown Christianity Affiliation Unknown Race Unknown Ethnic Group Unknown Author Name [facility] Organization Unknown History of Medication Use Medication Directions Dispensed Refills Start Date End Date Stat us doxycycline (MONODOX) 100 MG capsule Take 1 capsule (100 mg total) by mouth 2 (two) times a day. 07/28/2024 active allopurinol (ZYLOPRIM) 100 mg tablet Take 100 mg by mouth. 06/30/2024 active predniSONE (DELTASONE) 20 MG tablet Take 3 tabs for 2 days, 2 tabs for 2 days and 1 tab for 3 days With food. 04/25/2021 active potassium citrate (UROCIT-K) 10 MEQ (1080 MG) ER tablet 04/12/2021 active tamsulosin (FLOMAX) 0.4 MG capsule 03/30/2021 active cloNIDine (CATAPRES) 0.1 MG tablet 02/22/2021 active fluticasone (FloNASE) 50 mcg/spray nasal spray 02/22/2021 act damion hydrochlorothiazide (HYDRODIURIL) 25 MG tablet 02/22/2021 active lisinopril (PRINIVIL,ZeSTRIL) 10 MG tablet 02/22/2021 active rosuvastatin (CRESTOR) 5 MG tablet 02/22/2021 active Eliquis 2.5 MG tablet Take 2.5 mg by mouth 2 times a day. active metoPROLOL TARTRATE (LOPRESSOR) 25 MG tablet Take 25 mg by mouth 2 times a day. active Problems Problem Status Onset Date Problem Type Date of Resoluti on Source Erythema migrans (Lyme disease) active EncounterDiagnosisAct [facility] Encounters Encounter Type Encounter Reason Primary Diagnosis Location Date Ambulatory Lyme disease, unspecified Lyme disease, unspecified [facility] 07/28/2024 Ambulatory Gout, unspecified [facility] 04/25/2021 Care Team Organization Name Specialty Phone Email Start Date End Da te [facility] 07/28/2024 08/26/2024 [facility] 12/24/2021 10/05/2023 [facility] 04/25/2021 08/26/2024 [facility] 04/25/2021 04/25/2021
--- OUTSIDE RECORDS SUMMARY | 2024-09-12 13:04 | XMS_ITS | Clinical Summary ---
Demographics Address [address] [place] [address] Home Phone Work Phone Mobile Phone Home Phone Mobile Phone Email Address Preferred Language en Marital Status Jewish Affiliation Unknown Race White Ethnic Group Not or Lati no Author Organization [address] [place] [address] Phone Care Team Providers Care Stitch Burnisher Name Role Phone Marlene Arreola MD Primary Care Provider [phone] Allergies No known active allergies Medications dapagliflozin [...] 1,000 mg tablet 1 TABLET DAILY Active hydroCHLOROthia zide (HYDRODIURIL) 25 mg tablet Take 1 tablet (25 mg total) by mouth 1 (one) time each day. 90 tablet 1 01/01/20 24 Active apixaban (ELIQUIS) 2.5 [...] CAP.2 16 g 2 03/16/19 25 Active lisinopriL (PRINIVIL,ZESTR IL) 30 mg tablet TAKE 1 TABLET BY MOUTH EVERY DAY 90 tablet 1 05/27/19 25 Active allopurinoL (ZYLOPRIM) 100 mg tablet TAKE 1 TABLET ONCE DAILY 90 tablet 07/01/19 25 Active rosuvastatin (CRESTOR) 5 mg tablet TAKE 1 TABLET ONCE DAILY 90 tablet 07/01/19 25 Active tamsulosin (FLOMAX) 0.4 mg 24 hr capsule TAKE 1 CAPSULE ONCE DAILY. SHOULD BE TAKEN 30 MINUTES FOLLOWING THE SAME MEAL EACH DAY. 90 capsule 1 08/26/19 25 Active tamsulosin (FLOMAX) 0.4 mg 24 hr capsule Take 1 capsule (0.4 mg total) by mouth 1 (one) time each day. should be taken 30 minutes following the same meal each day. 90 capsule 1 01/01/20 24 025 Discontinued Active Problems Problem Noted Date [...] kidney disease) stage 3, GFR 30-59 ml/min ([facility] V24, [facility] V28) 02/01/2019 Assessment & Plan (03/14/2024 12:26 PM EST): Orders: Comprehensive metabolic panel; Future Hemoglobin A1c; Future Urinary retention 02/01/2019 Hearing loss 05/14/2017 Pneumonia 05/14/2017 Bilateral kidney masses 02/21/2009 Overview (11/12/2023): Recent US 01/24, follows with Dr. Marcum Elevated PSA 04/29/2007 Overview (11/12/2023): Followed by urology, [id number] PSA, Dr. Marcum Calculus of kidney 09/09/2005 Essential hypertension, benign 09/09/2005 Assessment & Plan (03/14/2024 12:26 PM EST): Orders: Hemoglobin A1c; Future Pure hypercholesterolemia 09/09/2005 Assessment & Plan (03/14/2024 12:26 PM EST): Immunizations Name Administration Dates Next Due Hepatitis B (Eodanwi-J-Jklby , Recombivax HB-Adult) 19yo and older 12/09/2000,10/05/2000 Influenza Quadravalent, MDCK , 0.5ml, with preservative (Flucelvax) 6mo and older 11/30/2017,11/25/2016 Influenza trivalent, 0.5mL ( Fluzone High-dose) 65yo and older 12/15/2022,11/03/2018,11/21/2015 Influenza trivalent, with pr eservative (Fluzone; Afluria) 6mo and older 11/22/2014,11/21/2013,12/28/2012,03/09,12/11/2010,11/27/2009 Influenza, Unspecified 11/11/2021,10/10/2019 [employer] SARS-CoV-2 COVID-19, mRNA, LNP-S, preservative free 04/17/2020,03/27/2020 Pneumococcal conjugate 20 va lent (Prevnar 20, PCV 20) 2mo and older 12/15/2022 Pneumococcal polysaccharide 23 valent (Pneumovax 23) 2yo and older 08/25/2006 Td Tetanus diptheria (Tdvax) 7yo and older 08/22/2010,10/05/2000 Tdap Tetanus diptheria acell ular pertussis (Boostrix; Adacel) 7yo and older 12/28/2012 Surgical History Surgery Date Site/Laterality Comments COLONOSCOPY 04/15/07 PROCEDURE: MO COLONOSCOPY STOMA DX INCLUDING COLLJ SPEC SPX; [...] Sign Reading Time Taken Comments Blood Pressure 140/74 05/24/2024 9:55 AM EDT Pulse 50 05/24/2024 9:55 AM EDT Temperature 35.8 C (96.4 F) 03/14/2024 8:57 AM EST Respiratory Rate 22 03/14/2024 8:57 AM EST Oxygen Saturation - - Inhaled Oxygen Concentration - - Weight 82.6 kg (182 lb) 05/24/2024 9:55 AM EDT Height 170.2 cm (5' 7 ) 03/14/2024 8:57 AM EST Body Mass Index 28.51 03/14/2024 8:57 AM EST Plan of Treatment Upcoming Encounters Date Type Department Care Team (Late st Contact Info) Description 09/21/2024 8:30 AM EDT Office Visit Adult Medicine [facility] [address] [place] [address] Marlene Arreola MD [address] [place], [place] 05/30/2025 9:15 AM EDT Office Visit [facility] [address] [place] [phone] Paolo Rosales MD [address] [facility] [address] [place] [phone] Health Maintenance Due Date Last Done Comments Hepatitis B Vaccines (3 of 3 - 19+ 3-dose series) 04/07/2001 12/09/2000, 10/05/2000 RSV Immunization Adult Patients (1 - 1-dose 75+ series) 2012 Zoster Vaccines (2 of 2) 02/27/2020 01/02/2020 Social Influencers of Health Screening 01/25/2022 DTaP,Tdap,and Td Vaccines (4 - Td or Tdap) 12/28/2022 12/28/2012, 08/22/2010, 10/05/2000 COVID-19 Vaccine (6 - Pfizer risk season) 2024 11/10/2023, 09/03/2021, 11/14/2020, Additional history exists Influenza Vaccine (#1) 2024 , 12/15/2022, 11/11/2021, Additional history exists Falls Risk Assessment 03/14/2025 03/14/2024 Medicare Annual Wellness Visit 03/14/2025 03/14/2024 Hypertension/CHF/CAD Annual BMP Blood Test 05/10/2025 05/10/2024, 05/18/2023 Cholesterol Screening (Lipid Panel) 05/17/2028 05/18/2023 Pneumococcal Vaccine: 50+ Years Completed 12/15/2022, 08/25/2006 Depression Screening Completed 03/14/2024 HIB Vaccines Aged Out No longer eligi [...] age to complete this topic Meningococcal B Vaccine Aged Out No l onger eligible based on patient's age to complete this topic RSV Immunization Patients Under 20 months Aged Out No longer eligible based on patient's age to complete this topic Varicella Vaccines Aged Out No longer eligible based on patient's age to complete this topic Procedures Procedure Name Priority Date/Time Associated Diagnosis Comments COMPREHENSIVE METABOLIC PANEL Routine 05/10/2024 3:09 PM EDT Stage 3 chronic kidney disease, unspecified whether stage 3a or 3b CKD ([facility] V24, [facility] V28) Atrial flutter, unspecified type ([facility] V24, [facility] V28) LIPID PANEL Routine 05/18/2023 from Last 3 Months or Most Recently Relevant to Health Maintenance Results * (ABNORMAL) Comprehensive metabolic panel (05/10/2024 3:09 PM EDT) Sodium 136 133 - 145 mmol/L LAB CHEMISTRY METHOD 05/10/2024 6:54 PM [facility] Potassium 4.9 3.5 - 5.5 mmol/L LAB CHEMISTRY METHOD 05/10/2024 6:54 PM EDT [facility] Chloride 106 96 - 110 mmol/L LAB CHEMISTRY METHOD 05/10/2024 6:54 PM EDT [facility] CO2 25 21 - 32 mmol/L LAB CHEMISTRY METHOD [facility] Anion Gap 5 3 - 11 LAB CHEMISTRY METHOD [facility] Glucose 98 70 - 100 mg/dL LAB CHEMISTRY METHOD 05/10/2024 6:54 PM [facility] BUN 40(H) 5 - 25 mg/dL LAB CHEMISTRY METHOD 05/10/2024 6:54 PM [facility] Creatinine 1.84(H) 0.70 - 1.30 mg/dL LAB CHEMISTRY METHOD 05/10/2024 6:54 PM [facility] eGFR 35(L) >=60 mL/min/1. 73m2 LAB CHEMISTRY METHOD 05/10/2024 6:54 PM [facility] Comment:Calculation based on the Chronic Kidney Disease Epidemiology Collaboration (CKD-EPI) equation refit without adjustment for race. BUN/Creatinine Ratio 21.7 LAB CHEMISTRY METHOD 05/10/2024 6:54 PM [facility] Calcium 9.6 8.5 - 10.5 mg/dL LAB CHEMISTRY METHOD 05/10/2024 6:54 PM [facility] AST (SGOT) 21 10 - 42 unit/L LAB CHEMISTRY METHOD 05/10/2024 6:54 PM [facility] ALT (SGPT) 29 10 - 60 unit/L LAB CHEMISTRY METHOD 05/10/2024 6:54 PM [facility] Alkaline Phosphatase 62 42 - 121 unit/L LAB CHEMISTRY METHOD 05/10/2024 6:54 PM [facility] Total Protein 7.2 6.0 - 8.0 g/dL LAB CHEMISTRY METHOD 05/10/2024 6:54 PM [facility] Albumin 4.0 3.2 - 5.0 g/dL LAB CHEMISTRY METHOD 05/10/2024 6:54 PM [facility] Total Bilirubin 0.4 0.0 - 1.4 mg/dL LAB CHEMISTRY METHOD 05/10/2024 6:54 PM [facility] Blood Venous blood specimen / Unknown Venipuncture / Unknown 05/10/2024 3:09 PM EDT 05/10/2024 3:09 PM EDT Marlene Arreola MD LAB BLOOD ORDERABLES Final Resul t [facility] [address] [place] [address], [place] [phone] * (ABNORMAL) Lipid panel (05/18/2023) LDL/HDL Ratio [...] Billing Address Personal/Family Self 1935 [address] [place], [place] [id number] [employer] - [place] MEDIC[place] ADVANTAGE Care Teams Stitch Burnisher Relationship Specialty Start Date End Date Marlene Arreola MD [address] [place] [phone] PCP - General 11/17/1998
--- NOTE | 2024-09-12 13:31 | ED.GENADULT ---
HPI - General Adult General Chief complaint: Dizziness Stated complaint: rapid heart beat quest afib Time Seen by Provider: 09/12/24 11:51 Source: patient, RN notes reviewed and old records reviewed Mode of arrival: ambulatory Limitations: no limitations History of Present Illness ED Provider: Mo HPI narrative: 88-year-old male past medical history significant for atrial flutter, on Eliquis, hypertension, chronic kidney disease presents for evaluation of dizziness. Patient reports that around 9:00 p.m. last night he started to feel somewhat dizzy which she describes as ?vertigo. ? He reports that it feels similar to last November when he was admitted here for a stroke workup. He had a CTA and a brain MRI ultimately which not show any findings consistent with a acute ischemia. His CTA also did not show any significant stenotic lesions in his head or neck The patient reports his symptoms are worse with positional changes, especially if he tries to stand up. He reports walking by bracing himself furniture He denies any headache, chest pain, abdominal pain, nausea vomiting, diarrhea He denies any falls The triage note reports that the patient was experiencing palpitations, when I asked him in his directly he denied any feelings of palpitations or tachycardia. Related Data Home Medications ?Medication ?Instructions ?Recorded ?Confirmed acetaminophen 325 mg tablet 650 mg PO Q6H PRN Pain 11/30/23 04/19/24 allopurinol 100 mg tablet 100 mg PO DAILY 11/30/23 04/19/24 hydrochlorothiazide 25 mg tablet 25 mg PO DAILY 11/30/23 04/19/24 lisinopril 30 mg tablet 30 mg PO DAILY 11/30/23 04/19/24 potassium citrate 10 mEq (1,080 10 meq PO BID 11/30/23 04/19/24 mg) tablet,extended release rosuvastatin 5 mg tablet 5 mg PO BEDTIME 11/30/23 04/19/24 tamsulosin 0.4 mg capsule 0.4 mg PO BEDTIME 11/30/23 04/19/24 dapagliflozin propanediol 5 mg 5 mg PO DAILY 04/19/24 04/19/24 tablet (Farxiga) Previous Rx's ?Medication ?Instructions ?Recorded apixaban 2.5 mg tablet (Eliquis) 2.5 mg PO BID #180 tabs 12/31/24 metoprolol tartrate 25 mg tablet 25 mg PO BID #180 tabs 02/16/24 meclizine 25 mg tablet 25 mg PO TID PRN nausea and 09/12/24 vomiting #20 tabs Allergies Allergy/AdvReac Type Severity Reaction Status Date / Time No Known Allergies Allergy Verified 09/12/24 10:17 Review of Systems Constitutional: Constitutional: Denies body ache(s), Denies chills and Denies headache(s) Eyes: Eyes: Denies blurry vision and Denies exophthalmos ENT: Reports vertigo, Reports dizziness and Denies headache(s) Cardiovascular: Cardiovascular: Denies dyspnea on exertion Respiratory: Respiratory: Denies cough and Denies dyspnea on exertion Gastrointestinal: Gastrointestinal: Denies abdominal pain and Denies nausea Musculoskeletal: Musculoskeletal: Denies back pain Neurologic: Reports vertigo, Reports dizziness and Denies headache(s) Psychiatric: Psychiatric: Denies anxiety PMF Past Medical History Medical History CKD (chronic kidney disease) BPH (benign prostatic hyperplasia) Gout Mixed hyperlipidemia Hypertension Family History Family History Father No problems noted. Mother Myocardial infarction Social History Social History Alcohol intake: current Alcohol intake frequency: holidays/special occasions only Alcohol type: beer Patient Tobacco Use Status: Never used Tobacco Smoked in Last 30 Days: No Use of substances other than those prescribed or required for medical reasons: No Advance Directives: No Advance Directives Information Provided: Yes service: No Physical Exam ED Vital Signs: Vital Signs - 24 hr 09/12/24 10:16 09/12/24 11:51 09/12/24 14:02 Temperature 98 F 97.5 F 97.4 F Pulse Rate 56 51 48 L Respiratory Rate 16 13 17 Blood Pressure 140/65 H 154/75 H 148/76 H Pulse Oximetry 98 98 98 Oxygen Delivery Method Room Air Room Air Room Air 09/12/24 14:56 09/12/24 14:57 09/12/24 14:58 Temperature Pulse Rate 57 58 58 Respiratory Rate Blood Pressure 126/78 142/76 H 152/74 H Pulse Oximetry Oxygen Delivery Method BMI result Body Mass Index 27.9 Const General: healthy appearing, comfortable, no acute distress, alert and awake Nutritional Appearance: well nourished Orientation/consciousness: patient oriented x3 HENMT Head: Yes normocephalic and Yes atraumatic Eyes Eyelids: Yes eyelids normal Conjunctivae: conjunctivae normal Sclerae: sclerae normal Corneas: corneas normal Pupils: Equal, round and reactive pupils present EOM: EOMs intact bilaterally Neck Neck: Yes full ROM Resp Effort & Inspection: normal respiratory effort, able to speak in complete sentences and not labored GI Inspection: No distended Palpation (GI): Soft to palpation, not firm, nontender, no guarding and not rigid Skin General skin exam: elasticity normal Neuro General: patient oriented x3 Cranial nerves: Yes Equal, round and reactive pupils present and Yes Bilaterally intact EOM present Cognition (Neuro): normal cognition Motor exam (neuro): 5/5 motor strength present throughout Coordination: [id number]-[id number] test normal and does not sway with eyes open Extrem Other: Moving all extremities well without any obvious deformities Course Reevaluation(s) Reevaluation #1: Patient reports feeling much better after meclizine and fluids. He was able to get up and walk to the bathroom without issue. He reports that he was also able to bend over and tie his shoe without feeling dizzy. We will discharge the patient home with meclizine Time: 15:16 Medications Administered Discontinued Medications Generic Name Dose Route Start Last Admin Trade Name Freq PRN Reason Stop Dose Admin Sodium Chloride 1,000 mls @ 999 mls/hr 09/12/24 13:00 09/12/24 14:54 Ns IV 09/12/24 14:00 Infused .Q1H1M [facility]STINA Infusion Meclizine HCl 50 mg 09/12/24 12:48 09/12/24 13:13 Meclizine Hcl 25 Mg Tablet PO 09/12/24 12:49 50 mg ONCE ONE Administration Medical Decision Making Medical Decision Making [facility] Narrative: 88-year-old male presents for evaluation of dizziness. He does have a history of atrial flutter but is currently in his sinus rhythm and he is anticoagulated. So I feel this is less likely to be a posterior CVA. His symptoms are more consistent with peripheral vertigo. He had has a history of chronic kidney disease, we will treat with IV fluids, meclizine and re-evaluate. The patient has a reassuring neurologic exam. He also had a CTA and a brain MRI less than a year ago that did not show any clinically significant stenosis. NIH stroke score of 0 Differential Diagnosis Differential Diagnoses: The differential diagnosis associated with the presentation includes Orthostasis Benign peripheral vertigo Central vertigo favored to be less likely Dehydration Lab Data MDM Lab Attestation statement: I reviewed the patient's lab results. No leukocytosis or significant anemia. Normal platelet count. No significant electrolyte abnormalities warranting intervention. Patient has chronic kidney disease in his BUN and creatinine are elevated to his baseline. Random glucose is 133 09/12/24 10:29 09/12/24 10:29 Labs: Lab Results 09/12/24 Range/Units 10:29 WBC 4.9 (4.8-10.8) X10*3/uL RBC 4.34 L (4.60-5.80) X10*6/uL Hgb 13.4 L (14.0-18.0) g/dl Hct 40.8 L (42.0-52.0) % MCV 94.0 (80.0-98.0) fL MCH 30.9 (27.0-33.0) pg MCHC 32.8 (31.0-36.0) g/dl RDW 14.8 (11.0-16.0) % Plt Count 208 (160-400) X10*3/uL MPV 11.0 (9.4-12.4) fL Immature Gran % (Auto) 0.2 (0.0-0.4) % Neut % (Auto) 69.3 (45-73) % Lymph % (Auto) 24.3 (20-40) % [place] % (Auto) 5.6 (2-11) % Eos % (Auto) 0.4 (0-4) % Baso % (Auto) 0.2 (0-2) % Lymph # (Auto) 1.2 (1.2-4.9) X10*3/uL [place] # (Auto) 0.3 (0.1-1.2) X10*3/uL Eos # (Auto) 0.0 (0.0-0.4) X10*3/uL Baso # (Auto) 0.0 (0.0-0.2) X10*3/uL Abs Immat Gran (auto) 0.01 (0.00-0.03) X10*3/uL Absolute Neuts (auto) 3.4 (2.0-8.3) x10*3/uL Absolute Nucleated RBC 0.000 (0.0-0.012) X10*3/uL Nucleated RBC % (auto) 0.0 (0.0-0.2) /100WBC Sodium 139 (135-145) mmol/L Potassium 4.4 (3.3-5.1) mmol/L Chloride 108 (96-108) mmol/L Carbon Dioxide 22 (22-29) mmol/L Anion Gap 13 (12-20) BUN 36 H (9-16) mg/dL Creatinine 1.56 H (0.5-1.4) mg/dL Estim Creat Clear Calc 34.5 Estimated GFR 42 Random Glucose 133 H (60-115) mg/dL Calcium 9.3 D (8.4-10.2) mg/dL Independent Interpretation I performed an independent interpretation of an: EKG (Sinus bradycardia with a rate of 55 beats minute.) Discharge Plan Discharge Clinical Impression: Vertigo Patient Disposition: Home, Self-Care Instructions: Vertigo (ED) Additional Instructions: Your workup in the ER today was reassuring. You were treated for vertigo with IV fluids and meclizine. You may take meclizine 25 mg up to 3 times a day as needed for further dizziness Follow-up with your primary doctor, return for new or worsening symptom Prescriptions: New meclizine 25 mg tablet 25 mg PO TID PRN (Reason: nausea and vomiting) Qty: 20 0RF No Action Eliquis 2.5 mg tablet 2.5 mg PO BID Qty: 180 3RF metoprolol tartrate 25 mg tablet 25 mg PO BID Qty: 180 3RF Protocol: Hold for SBP/HR < HOLD for SBP < : 90 HOLD for HR < : 60 acetaminophen 325 mg Tablet 650 mg PO Q6H PRN (Reason: Pain) allopurinol 100 mg tablet 100 mg PO DAILY tamsulosin 0.4 mg capsule 0.4 mg PO BEDTIME potassium citrate 10 mEq (1,080 mg) tablet extended release 10 meq PO BID lisinopril 30 mg tablet 30 mg PO DAILY hydrochlorothiazide 25 mg tablet 25 mg PO DAILY rosuvastatin 5 mg tablet 5 mg PO BEDTIME dapagliflozin propanediol [Farxiga] 5 mg tablet 5 mg PO DAILY Print Language: Upper Sorbian
[2024-09-13 22:13] LABS: Lyme Disease DNA PCR NOT DETECTED (NOT DETECTED)
[2024-09-13 22:23] LABS: A. Phagocytphilium DNA,RT-PCR NOT DETECTED (NOT DETECTED); Babesia Microti DNA, RT-PCR NOT DETECTED (NOT DETECTED); Borrelia Miyamotoi,DNA RT-PCR NOT DETECTED (NOT DETECTED); E.Chaffeensis DNA RT-PCR NOT DETECTED (NOT DETECTED); Lyme(Borrelia ssp)DNA RT-PCR NOT DETECTED (NOT DETECTED)
[2024-09-13 23:33] LABS: Lyme Blot 0.98 index
[2024-09-16 11:25] LABS: Lyme Abs Screen EQUIVOCAL
[2024-09-22 20:48] LABS: 39KD (IgG) Band NON-REACTIVE; 41KD (IgG) Band REACTIVE; Lyme IgG Blot Interp NEGATIVE (NEGATIVE); Lyme IgM Blot Interp NEGATIVE (NEGATIVE)
== END 2024-09-12 15:32 | disposition home or self-care (01) ==
PROVIDERS: Physician Assistant; Emergency Provider Emergency Medicine; PCP Internal Medicine
DX: R42 Dizziness and giddiness (principal); I10 Essential (primary) hypertension; E78.2 Mixed hyperlipidemia; I48.92 Unspecified atrial flutter; Z79.01 Long term (current) use of anticoagulants; Z79.02 Long term (current) use of antithrombotics/antiplatelets; Z79.899 Other long term (current) drug therapy
CPT/HCPCS: 36415; 80048; 85025; 86617; 86618; 87468; 87469; 87478; 87484; 87798; 93005; 96360; 96361; 99284; 99285

== ENCOUNTER → 2024-09-12 09:59 | Outpatient (BNV) | payer MEDICARE, SELFPAY | PROVIDERS: Emergency Provider Emergency Medicine; PCP Internal Medicine; Visit Provider Internal Medicine Cardiovascular Disease | DX: R00.1 Bradycardia, unspecified (principal) | CPT/HCPCS: 93010 ==

== ENCOUNTER → 2024-10-04 09:31 | Outpatient (REF) | payer MEDICARE, SELFPAY ==
--- NOTE | 2024-10-04 09:35 | HM_ITS ---
Conclusion: 1. Patient was monitored for total period of 7 days 2. Baseline was normal sinus rhythm with average heart of 55 beats per minute 3. No significant pauses noted but frequent sinus bradycardia noted with 65% of the time heart rate below 60 beats per minute 4. Occasional PVCs noted with total burden of 0.23% noted with 1 3 beat run of nonsustained VT at 134 beats per minute 5. Occasional PACs noted without any sustained atrial fibrillation 6. No patient reported events MTDD
--- OUTSIDE RECORDS SUMMARY | 2024-10-04 10:34 | XMS_ITS | Clinical Summary ---
Demographics Address [address] [place] [address] Mobile Phone Email Address Preferred Language Citizen Of [place] Marital Status Unknown Sabianism Affiliation Unknown Race Unknown Ethnic Group Unknown Author Organization [facility] Address [address] [place] [id number] Care Team Providers Care Machine Rigger Name Role Phone Marlene Arreola MD Primary [...] Description 07/28/2024 8:00 AM EDT Office Visit [facility] [place] [address] Willian Serna MD Liquori, Angela M, PA-C Erythema migrans (Lyme disease) (Primary Dx) 07/28/2024 Scanned Document [address] [place] [phone] Provider, Generic 07/28/2024 Travel from Last 3 [...] Billing Address Personal/Family Self 1935 [address] [place] [address] BLUE CROSS MEDIBLUE D MEDICARE BLUE CROSS MGD MEDICARE OUT OF NETWORK Care Teams Machine Rigger Relationship Specialty Start Date End Date Marlene Arreola MD PCP - General 04/25/21
--- OUTSIDE RECORDS SUMMARY | 2024-10-04 10:34 | XMS_ITS | Clinical Summary ---
Demographics Address [address] [place] [address] Home Phone Work Phone Mobile Phone Home Phone Mobile Phone Email Address Preferred Language en Marital Status Samaritan Affiliation Unknown Race White Ethnic Group Not or Lati no Author Organization [address] [place] [address] Phone Care Team Providers Care Accountancy Professor Name Role Phone Marlene Arreola MD Primary Care Provider [phone] Allergies No known active allergies Medications dapagliflozin [...] 1,000 mg tablet 1 TABLET DAILY Active hydroCHLOROthi azide (HYDRODIURIL) 25 mg tablet [...] 16 g 2 03/16/19 25 Active lisinopriL (PRINIVIL,ZEST RIL) 30 mg tablet TAKE 1 TABLET BY MOUTH EVERY DAY 90 tablet 1 05/27/19 25 Active tamsulosin (FLOMAX) 0.4 mg 24 hr capsule TAKE 1 CAPSULE ONCE DAILY. SHOULD BE TAKEN 30 MINUTES FOLLOWING THE SAME MEAL EACH DAY. 90 capsule 1 08/26/19 25 Active rosuvastatin (CRESTOR) 5 mg tablet TAKE 1 TABLET ONCE DAILY 90 tablet 09/17/19 25 Active allopurinoL (ZYLOPRIM) 100 mg tablet TAKE 1 TABLET ONCE DAILY 90 tablet 09/17/19 25 Active meclizine (ANTIVERT) 25 mg tablet Take 1 tablet (25 mg total) by mouth 3 (three) times a day if needed for dizziness. 30 tablet 1 09/22/19 25 Active allopurinoL (ZYLOPRIM) 100 mg tablet TAKE 1 TABLET ONCE DAILY 90 tablet 07/01/19 25 025 Discontinued rosuvastatin (CRESTOR) 5 mg tablet TAKE 1 TABLET ONCE DAILY 90 tablet 07/01/19 25 025 Discontinued meclizine (ANTIVERT) 25 mg tablet Take 1 tablet (25 mg total) by mouth 3 (three) times a day if needed for dizziness. 09/13/19 25 025 Discontinued(Re order) Active Problems Problem Noted Date Diagnosed Date Dizziness 09/21/2024 Overview (09/21/2024): Believed to be related with the vertigo, November 2023, August 2024, please see note September 22, 2024. Atrial fibrillation (CMS/HCC V24, CMS/HCC V28) 0 09/21/2024 Arterial calcification 07/28/2022 Overview (11/12/2023): Extensive bilateral lower extremity arterial calcifications seen on x-ray ordered by orthopedics on 07/24/2022. Mixed hyperlipidemia 03/25/2022 Benign prostatic hyperplasia without lower urinary tract symptoms 11/18/2021 Hyperuricemia 11/18/2021 Hypertriglyceridemia 06/17/2021 Metabolic syndrome 08/29/2020 Assessment & Plan (03/14/2024 12:26 PM EST): Orders: Hemoglobin A1c; Future CKD (chronic kidney disease) stage 3, GFR 30-59 ml/min ([facility] V24, [facility] V28) 02/01/2019 Assessment & Plan (03/14/2024 12:26 PM EST): Orders: Comprehensive metabolic panel; Future Hemoglobin A1c; Future Urinary retention 02/01/2019 Hearing loss 05/14/2017 Pneumonia 05/14/2017 Bilateral kidney masses 02/21/2009 Overview (11/12/2023): Recent US 01/24, follows with Dr. Marcum Elevated PSA 04/29/2007 Overview (11/12/2023): Followed by urology, [id number] PSA, Dr. Marcum Calculus of kidney 09/09/2005 Essential hypertension, benign 09/09/2005 Assessment & Plan (03/14/2024 12:26 PM EST): Orders: Hemoglobin A1c; Future Pure hypercholesterolemia 09/09/2005 Assessment & Plan (03/14/2024 12:26 PM EST): Encounters Date Type Department Care Team Description 09/21/2024 8:30 AM EDT Office Visit Adult Medicine [address] [phone] Marlene Arreola MD Dizziness (Primary Dx); Mixed hyperlipidemia; Stage 3 chronic kidney disease, unspecified whether stage 3a or 3b CKD ([facility] V24, [facility] V28); Essential hypertension, benign; Other fatigue; Elevated PSA; Atrial fibrillation, unspecified type (CMS/HCC V24, CMS/HCC V28) 09/19/2024 Lab Requisition [facility] [address] [place] [phone] Kenny Minor MD Elevated prostate specific antigen (PSA) from Last 3 Months Immunizations Name Administration Dates Next Due Hepatitis B (Oeixmnr-F-Olgab , Recombivax HB-Adult) 19yo and older 12/09/2000,10/05/2000 Influenza Quadravalent, MDCK , 0.5ml, with preservative (Flucelvax) 6mo and older 11/30/2017,11/25/2016 Influenza trivalent, 0.5mL ( Fluzone High-dose) 65yo and older 12/15/2022,11/03/2018,11/21/2015 Influenza trivalent, with pr eservative (Fluzone; Afluria) 6mo and older 11/22/2014,11/21/2013,12/28/2012,03/09,12/11/2010,11/27/2009 Influenza, Unspecified 11/11/2021,10/10/2019 Jooce SARS-CoV-2 COVID-19, mRNA, LNP-S, preservative free 04/17/2020,03/27/2020 [...] Packs/Day Years Used Date Smoking Tobacco: Never Passive Smoke Exposure: Never Smokeless Tobacco: Never Tobacco Cessation:Counseling Given: [...] Sign Reading Time Taken Comments Blood Pressure 110/64 09/21/2024 8:22 AM EDT Pulse 64 09/21/2024 8:22 AM EDT Temperature 36.4 C (97.5 F) 09/21/2024 8:22 AM EDT Respiratory Rate 14 09/21/2024 8:22 AM EDT Oxygen Saturation 96% 09/21/2024 8:22 AM EDT Inhaled Oxygen Concentration - - Weight 81.6 kg (180 lb) 09/21/2024 8:22 AM EDT Height 172.7 cm (5' 8 ) 09/21/2024 8:22 AM EDT Body Mass Index 27.37 09/21/2024 8:22 AM EDT Plan of Treatment Upcoming Encounters Date Type Department Care Team (Late st Contact Info) Description 01/26/2025 11:00 AM EST Office Visit Adult Medicine [facility] [address] [place], [place] [phone] Marlene Arreola MD [address] [place], [place] 05/30/2025 9:15 AM EDT Office Visit [facility] [address] [facility] [place] [place] [phone] Paolo Rosales MD [address] [phone] Health Maintenance Due Date Last Done Comments Hepatitis B Vaccines (3 of 3 - 19+ 3-dose series) 04/07/2001 12/09/2000, 10/05/2000 RSV Immunization Adult Patients (1 - 1-dose 75+ series) 2012 Zoster Vaccines (2 of 2) 02/27/2020 01/02/2020 Social Influencers of Health Screening 01/25/2022 DTaP,Tdap,and Td Vaccines (4 - Td or Tdap) 12/28/2022 12/28/2012, 08/22/2010, 10/05/2000 COVID-19 Vaccine (6 - Pfizer risk ) 05/09/2024 11/10/2023, 09/03/2021, 11/14/2020, Additional history exists Influenza [...] Procedure Name Priority Date/Time Associated Diagnosis Comments TISSUE EXAM Routine 09/16/2024 Elevated prostate specific antigen (PSA) COMPREHENSIVE METABOLIC PANEL Routine 05/10/2024 3:09 PM EDT Stage 3 chronic kidney disease, unspecified whether stage 3a or 3b CKD (CMS/HCC V24, CMS/HCC V28) Atrial flutter, unspecified type (CMS/HCC V24, CMS/HCC V28) LIPID PANEL Routine 05/18/2023 from Last 3 Months or Most Recently Relevant to Health Maintenance Results * Tissue Exam (09/16/2024) Final Diagnosis A. Prostate, Left Middle [place] Biopsy: - Prostatic acinar adenocarcinoma (conventional type), grade group 1 (Aziza score 3+3=6). - Tumor continuously involves 98% of 1 of 1 tissue core. B. Prostate, Left Lateral [place] Biopsy: - Atypical small acinar proliferation (ANAHI). C. Prostate, Left Middle Middle Biopsy: - Benign prostatic tissue. D. Prostate, Left Lateral Middle Biopsy: - Benign prostatic tissue. E. Prostate, Left Middle Base Biopsy: - Benign prostatic tissue. F. Prostate, Left Lateral Base Biopsy: - Benign prostatic tissue. G. Prostate, Right [place] Biopsy: - Prostatic acinar adenocarcinoma (conventional type), grade group 1 (Gridley score 3+3=6). - Tumor continuously involves 90% of 1 of 1 tissue core. H. Prostate, Right Lateral [place] Biopsy: - Prostatic acinar adenocarcinoma (conventional type), grade group 1 (Aziza score 3+3=6). - Tumor discontinuously involves 36% of 1 of 1 tissue core. I. Prostate, Right Middle Middle Biopsy: - Prostatic acinar adenocarcinoma (conventional type), grade group 1 (Gridley score 3+3=6). - Tumor continuously involves 5% of 1 of 1 tissue core. J. Prostate, Right Lateral Middle Biopsy: - Benign prostatic tissue. K. Prostate, Right Middle Base Biopsy: - Benign prostatic tissue. L. Prostate, Right Lateral Base Biopsy: - High grade prostatic intraepithelial neoplasia (HGPIN). 09/22/2024 12:47 PM EDT [facility] Clinical Information Elevated PSA = 39.1 (08/08/24) [id number] 09/22/2024 12:47 PM EDT [facility] Gross Description A. Prostate, Left Middle [place] Biopsy: Received, properly labeled, are two H and E stained slides and two unstained slides. B. Prostate, Left Lateral [place] Biopsy: Received, properly labeled, are two H and E stained slides and two unstained slides. C. Prostate, Left Middle Middle Biopsy: Received, properly labeled, are two H and E stained slides and two unstained slides. D. Prostate, Left Lateral Middle Biopsy: Received, properly labeled, are two H and E stained slides and two unstained slides. E. Prostate, Left Middle Base Biopsy: Received, properly labeled, are two H and E stained slides and two unstained slides. F. Prostate, Left Lateral Base Biopsy: Received, properly labeled, are two H and E stained slides and two unstained slides. G. Prostate, Right Middle [place] Biopsy: Received, properly labeled, are two H and E stained slides and two unstained slides. H. Prostate, Right Lateral [place] Biopsy: Received, properly labeled, are two H and E stained slides and two unstained slides. I. Prostate, Right Middle Middle Biopsy: Received, properly labeled, are two H and E stained slides and two unstained slides. J. Prostate, Right Lateral Middle Biopsy: Received, properly labeled, are two H and E stained slides and two unstained slides. K. Prostate, Right Middle Base Biopsy: Received, properly labeled, are two H and E stained slides and two unstained slides. L. Prostate, Right Lateral Base Biopsy: Received, properly labeled, are two H and E stained slides and two unstained slides. /al 09/22/2024 12:47 PM EDT [facility] Disclaimer Unless otherwise specified, all tissue is 10% NB formalin fixed and paraffin embedded. Technical pathology services provided by [facility] at [address] [place] [address] [address], [place] [address] (CLIA #[id number]/Judy Palomo MD, Technology And Engineering Teacher) 09/22/2024 12:47 PM EDT [facility] Tissue Prostate / Unknown 09/16/20242024 2:13 PM EDT Tissue specimen (specimen) Prostate / Unknown 09/16/2024 09/19/2024 2: 13 PM EDT Tissue specimen (specimen) Prostate / Unknown 09/16/2024 09/19/2024 2: 13 PM EDT Tissue specimen (specimen) Prostate / Unknown 09/16/2024 09/19/2024 2: 13 PM EDT Tissue specimen (specimen) Prostate / Unknown 09/16/2024 09/19/2024 2: 13 PM EDT Tissue specimen (specimen) Prostate / Unknown 09/16/2024 09/19/2024 2: 13 PM EDT Tissue specimen (specimen) Prostate / Unknown 09/16/2024 09/19/2024 2: 13 PM EDT Tissue specimen (specimen) Prostate / Unknown 09/16/2024 09/19/2024 2: 13 PM EDT Tissue specimen (specimen) Prostate / Unknown 09/16/2024 09/19/2024 2: 13 PM EDT Tissue specimen (specimen) Prostate / Unknown 09/16/2024 09/19/2024 2: 13 PM EDT Tissue specimen (specimen) Prostate / Unknown 09/16/2024 09/19/2024 2: 13 PM EDT Tissue specimen (specimen) Prostate / Unknown 09/16/2024 09/19/2024 2: 13 PM EDT us Kenny Minor MD LAB PATHOLOGY ORDERABLES Final Result [facility] [address] [place] [address], * (ABNORMAL) Comprehensive metabolic panel (05/10/2024 3:09 PM EDT) Sodium 136 133 - 145 mmol/L LAB CHEMISTRY METHOD 05/10/2024 6:54 PM EDT [facility] Potassium 4.9 3.5 - 5.5 mmol/L LAB CHEMISTRY METHOD 05/10/2024 6:54 PM [facility] Chloride 106 96 - 110 mmol/L LAB CHEMISTRY METHOD 05/10/2024 6:54 PM [facility] CO2 25 21 - 32 mmol/L LAB CHEMISTRY METHOD 05/10/2024 6:54 PM [facility] Anion Gap 5 3 - 11 LAB CHEMISTRY METHOD 05/10/2024 6:54 PM [facility] Glucose 98 70 - 100 mg/dL LAB CHEMISTRY METHOD 05/10/2024 6:54 PM [facility] BUN 40(H) 5 - 25 mg/dL LAB CHEMISTRY METHOD 05/10/2024 6:54 PM [facility] Creatinine 1.84(H) 0.70 - 1.30 mg/dL LAB CHEMISTRY METHOD 05/10/2024 6:54 PM [facility] eGFR 35(L) >=60 mL/min/1. 73m2 LAB CHEMISTRY METHOD 05/10/2024 6:54 PM [facility] Comment:Calculation based on the Chronic Kidney Disease Epidemiology Collaboration (CKD-EPI) equation refit without adjustment for race. BUN/Creatinine Ratio 21.7 LAB CHEMISTRY METHOD 05/10/2024 6:54 PM [facility] Calcium 9.6 8.5 - 10.5 mg/dL LAB CHEMISTRY METHOD 05/10/2024 6:54 PM [facility] AST (SGOT) 21 10 - 42 unit/L LAB CHEMISTRY METHOD 05/10/2024 6:54 PM [facility] ALT (SGPT) 29 10 - 60 unit/L LAB CHEMISTRY METHOD 05/10/2024 6:54 PM [facility] Alkaline Phosphatase 62 42 - 121 unit/L LAB CHEMISTRY METHOD 05/10/2024 6:54 PM [facility] Total Protein 7.2 6.0 - 8.0 g/dL LAB CHEMISTRY METHOD 05/10/2024 6:54 PM EDT [facility] Albumin 4.0 3.2 - 5.0 g/dL LAB CHEMISTRY METHOD 05/10/2024 6:54 PM EDT [facility] Total Bilirubin 0.4 0.0 - 1.4 mg/dL LAB CHEMISTRY METHOD 05/10/2024 6:54 PM EDT [facility] Blood Venous blood specimen / Unknown Venipuncture / Unknown 05/10/2024 3:09 PM EDT 05/10/2024 3:09 PM EDT Marlene Arreola MD LAB BLOOD ORDERABLES Final Resul t [facility] [address] [place] [address], * (ABNORMAL) Lipid panel (05/18/2023) LDL/HDL Ratio [...] Billing Address Personal/Family Self 1935 [address] [place] [address] [facility] MEDICARE ADVANTAGE Care Teams Accountancy Professor Relationship Specialty Start Date End Date Marlene Arreola MD [address] [place] [address] PCP - General 11/17/1998
== END ==
LOC: HO.CARD 09:31
PROVIDERS: PCP Internal Medicine; Visit Provider Internal Medicine
DX: I48.91 Unspecified atrial fibrillation (principal); I48.92 Unspecified atrial flutter
CPT/HCPCS: 93242

== ENCOUNTER → 2024-10-04 09:35 | Outpatient (BNV) | payer MEDICARE, SELFPAY | PROVIDERS: PCP Internal Medicine; Visit Provider Internal Medicine Cardiovascular Disease | DX: I49.1 Atrial premature depolarization (principal); I49.3 Ventricular premature depolarization | CPT/HCPCS: 93244 ==

== ENCOUNTER 2024-10-18 08:01 | Outpatient (AMB) | payer MEDICARE, SELFPAY ==
--- OUTSIDE RECORDS SUMMARY | 2024-10-18 08:05 | XMS_ITS | Encounter Summary ---
Demographics Address [address] [place] [address] Mobile Phone Email Address Preferred Language Montenegrin Marital Status Unknown Anabaptist Affiliation Unknown Race Unknown Ethnic Group Unknown Author Organization [facility] Address [address] [place] [address] Care Team Providers Care Brokerage Branch Manager Name Role Phone Marlene Arreola MD Primary Care Provider Unavailabl e Encounter Details Date Type Department Care Team (Late st Contact Info) Description 07/28/2024 Scanned Document [address] [place] [phone] Provider, Generic Social History Tobacco Use Types Packs/Day Years [...] on file documented as of this encounter Plan of Treatment Not on file documented as of this encounter Visit Diagnoses Not on filedocumented in this encounter Care Teams Brokerage Branch Manager Relationship Specialty Start Date End Date Marlene Arreola MD PCP - General 04/25/21 documented as of this encounter
--- OUTSIDE RECORDS SUMMARY | 2024-10-18 08:05 | XMS_ITS | Clinical Summary ---
Demographics Address [address] [place] [address] Mobile Phone Email Address Preferred Language Hungarian Marital Status Unknown Latter Day Affiliation Unknown Race Unknown Ethnic Group Unknown Author Organization [facility] Address [address] [place] [id number] Care Team Providers Care Cost Accountant Name Role Phone Marlene Arreola MD Primary [...] Description 07/28/2024 8:00 AM EDT Office Visit [facility] [place] [phone] Willian Serna MD Liquori, Angela M, PA-C Erythema migrans (Lyme disease) (Primary Dx) 07/28/2024 Scanned Document [address] [place] [phone] Provider, Generic 07/28/2024 Travel from Last 3 [...] Health Maintenance Due Date Last Done Comments Advance Care Planning 1935 DTaP/Tdap/Td Vaccines (1 - Tdap) 1954 Pneumococcal [...] to complete this topic Insurance * Guarantor: Jose Robins Account Type Relation to Patient Date of Phone Billing Address Personal/Family Self 1935 [address] [place] [address] [place] [employer] MEDICARE [employer] MEDICARE OUT OF NETWORK Care Teams Cost Accountant Relationship Specialty Start Date End Date Marlene Arreola MD PCP - General 04/25/21
--- OUTSIDE RECORDS SUMMARY | 2024-10-18 08:05 | XMS_ITS | Clinical Summary ---
Demographics Address [address] [place] [address] Home Phone Work Phone Mobile Phone Home Phone Mobile Phone Email Address Preferred Language en Marital Status Rastafari Affiliation Unknown Race White Ethnic Group Not or Lati no Author Organization [address] Address [address] [place] [phone] Phone Care Team Providers Care Category Manager Name Role Phone Marlene Arreola MD Primary Care Provider [phone] Allergies No known active allergies Medications dapagliflozin [...] each day. 90 tablet 1 4 Active apixaban (ELIQUIS) 2.5 mg [...] REPLACE CAP.2 16 g 2 5 Active lisinopriL (PRINIVIL,ZESTR IL) 30 mg tablet TAKE 1 TABLET BY MOUTH EVERY DAY 90 tablet 1 5 Active tamsulosin (FLOMAX) 0.4 mg 24 hr capsule TAKE 1 CAPSULE ONCE DAILY. SHOULD BE TAKEN 30 MINUTES FOLLOWING THE SAME MEAL EACH DAY. 90 capsule 1 5 Active rosuvastatin (CRESTOR) 5 mg tablet TAKE 1 TABLET ONCE DAILY 90 tablet 5 Active allopurinoL (ZYLOPRIM) 100 mg tablet TAKE 1 TABLET ONCE DAILY 90 tablet 5 Active meclizine (ANTIVERT) 25 mg tablet Take 1 tablet (25 mg total) by mouth 3 (three) times a day if needed for dizziness. 30 tablet 1 5 Active meclizine (ANTIVERT) 25 mg tablet Take 1 tablet (25 mg total) by mouth 3 (three) times a day if needed for dizziness. 5 09/22/19 25 Discontin ued(Reord er) Active Problems Problem Noted Date Diagnosed Date [...] kidney disease) stage 3, GFR 30-59 ml/min ([facility] V24, [facility] V28) 02/01/2019 Assessment & Plan (03/14/2024 12:26 PM EST): Orders: Comprehensive metabolic panel; Future Hemoglobin A1c; Future Urinary retention 02/01/2019 Hearing loss 05/14/2017 Pneumonia 05/14/2017 Bilateral kidney masses 02/21/2009 Overview (11/12/2023): Recent US 01/24, follows with Dr. Marcum Elevated PSA 04/29/2007 Overview (11/12/2023): Followed by urology, [id number] PSA, Dr. Marcum Calculus of kidney 09/09/2005 Essential hypertension, benign 09/09/2005 Assessment & Plan (03/14/2024 12:26 PM EST): Orders: Hemoglobin A1c; Future Pure hypercholesterolemia 09/09/2005 Assessment & Plan (03/14/2024 12:26 PM EST): Encounters Date Type Department Care Team Description 09/21/2024 8:30 AM EDT Office Visit Adult Medicine [address] [phone] Marlene Arreola MD Dizziness (Primary Dx); Mixed hyperlipidemia; Stage 3 chronic kidney disease, unspecified whether stage 3a or 3b CKD ([facility] V24, [facility] V28); Essential hypertension, benign; Other fatigue; Elevated PSA; Atrial fibrillation, unspecified type ([facility] V24, [facility] V28) 09/19/2024 Lab Requisition [facility] - Main Lab [address] [facility] [place] [address] Kenny Minor MD Elevated prostate specific antigen (PSA) from Last 3 Months Immunizations Name Administration Dates Next Due Hepatitis B (Txfoxyz-F-Gblky , Recombivax HB-Adult) 19yo and older 12/09/2000,10/05/2000 [...] Surgery Date Site/Laterality Comments COLONOSCOPY 04/15/07 PROCEDURE: NE COLONOSCOPY STOMA DX INCLUDING COLLJ SPEC SPX; [...] 11:00 AM EST Office Visit Adult Medicine [facility] [address] [place] [address] Marlene Arreola MD [address], [place] 05/30/2025 9:15 AM EDT Office Visit [facility] - [facility] [address] [phone] Paolo Rosales MD [address] [phone] Health Maintenance Due Date Last Done Comments Hepatitis B Vaccines (3 of 3 - 19+ 3-dose series) 04/07/2001 12/09/2000, 10/05/2000 RSV Immunization Adult Patients (1 - 1-dose 75+ series) 2012 Zoster Vaccines (2 of 2) 02/27/2020 01/02/2020 Social Influencers of Health Screening 01/25/2022 DTaP,Tdap,and Td Vaccines (4 - Td or Tdap) 12/28/2022 12/28/2012, 08/22/2010, 10/05/2000 COVID-19 Vaccine (6 - Pfizer risk 2023- season) 2024 11/10/2023, 09/03/2021, 11/14/2020, Additional history [...] (09/16/2024) Final Diagnosis A. Prostate, Left Middle [place] Biopsy: - Prostatic acinar adenocarcinoma (conventional type), grade group 1 (Aziza score 3+3=6). - Tumor continuously involves 98% of 1 of 1 tissue core. B. Prostate, Left Lateral [place] Biopsy: - Atypical small acinar proliferation (ANAHI). C. Prostate, Left Middle [place] Biopsy: - Benign prostatic tissue. D. Prostate, Left Lateral [place] Biopsy: - Benign prostatic tissue. E. Prostate, Left Middle [place] Biopsy: - Benign prostatic tissue. F. Prostate, Left Lateral [place] Biopsy: - Benign prostatic tissue. G. Prostate, Right Middle [place] Biopsy: - Prostatic acinar adenocarcinoma (conventional type), grade group 1 (Jefferson score 3+3=6). - Tumor continuously involves 90% of 1 of 1 tissue core. H. Prostate, Right Lateral [place] Biopsy: - Prostatic acinar adenocarcinoma (conventional type), grade group 1 (Jefferson score 3+3=6). - Tumor discontinuously involves 36% of 1 of 1 tissue core. I. Prostate, Right Middle [place] Biopsy: - Prostatic acinar adenocarcinoma (conventional type), grade group 1 (Aziza score 3+3=6). - Tumor continuously involves 5% of 1 of 1 tissue core. J. Prostate, Right Lateral [place] Biopsy: - Benign prostatic tissue. K. Prostate, Right Middle [place] Biopsy: - Benign prostatic tissue. L. Prostate, Right Lateral [place] Biopsy: - High grade prostatic intraepithelial neoplasia (HGPIN). 09/22/2024 12:47 PM EDT [facility]) [facility] Clinical Information Elevated PSA = 39.1 (08/08/24) [id number] 09/22/2024 12:47 PM T [facility] Gross Description A. Prostate, Left Middle [place] Biopsy: Received, properly labeled, are two H and E stained slides and two unstained slides. B. Prostate, Left Lateral [place] Biopsy: Received, properly labeled, are two H [...] two unstained slides. G. Prostate, Right Middle [place] Biopsy: Received, properly labeled, are two H and E stained slides and two unstained slides. H. Prostate, Right Lateral [place] Biopsy: Received, properly labeled, are two H [...] two unstained slides. /al 09/22/2024 12:47 PM T [facility] Disclaimer Unless otherwise specified, all tissue is 10% NB formalin fixed and paraffin embedded. Technical pathology services provided by [facility] at [address] [place] [address] [address], [place] [address] (CLIA #[id number]/Judy Palomo MD, Air Tester) 09/22/2024 12:47 PM [facility] Tissue Prostate / Unknown 09/16/20242024 [...] Minor MD LAB PATHOLOGY ORDERABLES Final Result [facility] [address] [place] [address], * (ABNORMAL) Comprehensive metabolic panel (05/10/2024 3:09 PM EDT) Sodium 136 133 - 145 mmol/L LAB CHEMISTRY METHOD 05/10/2024 6:54 PM EDT [facility] Potassium 4.9 3.5 - 5.5 mmol/L LAB CHEMISTRY METHOD 05/10/2024 6:54 PM EDT [facility] Chloride 106 96 - 110 mmol/L LAB CHEMISTRY METHOD 05/10/2024 6:54 PM [facility] CO2 25 21 - 32 mmol/L LAB CHEMISTRY METHOD 05/10/2024 6:54 PM [facility] Anion Gap 5 3 - 11 LAB CHEMISTRY METHOD 05/10/2024 6:54 PM [facility] Glucose 98 70 - 100 mg/dL LAB CHEMISTRY METHOD 05/10/2024 6:54 PM [facility] BUN 40(H) 5 - 25 mg/dL LAB CHEMISTRY METHOD 05/10/2024 6:54 PM [facility] Creatinine 1.84(H) 0.70 - 1.30 mg/dL LAB CHEMISTRY METHOD 05/10/2024 6:54 PM [facility] eGFR 35(L) >=60 mL/min/1. 73m2 LAB CHEMISTRY METHOD 05/10/2024 6:54 PM [facility] Comment:Calculation based on the Chronic Kidney Disease Epidemiology Collaboration (CKD-EPI) equation refit without adjustment for race. BUN/Creatinine Ratio 21.7 LAB CHEMISTRY METHOD 05/10/2024 6:54 PM [facility] Calcium 9.6 8.5 - 10.5 mg/dL LAB CHEMISTRY METHOD 05/10/2024 6:54 PM [facility] AST (SGOT) 21 10 - 42 unit/L LAB CHEMISTRY METHOD 05/10/2024 6:54 PM [facility] ALT (SGPT) 29 10 - 60 unit/L LAB CHEMISTRY METHOD 05/10/2024 6:54 PM [facility] Alkaline Phosphatase 62 42 - 121 unit/L LAB CHEMISTRY METHOD 05/10/2024 6:54 PM [facility] Total Protein 7.2 6.0 - 8.0 g/dL LAB CHEMISTRY METHOD 05/10/2024 6:54 PM [facility] Albumin 4.0 3.2 - 5.0 g/dL LAB CHEMISTRY METHOD 05/10/2024 6:54 PM EDT [facility] Total Bilirubin 0.4 0.0 - 1.4 mg/dL LAB CHEMISTRY METHOD 05/10/2024 6:54 PM EDT [facility] Blood Venous blood specimen / Unknown Venipuncture / Unknown 05/10/2024 3:09 PM EDT 05/10/2024 3:09 PM EDT Marlene Arreola MD LAB BLOOD ORDERABLES Final Resul t [facility] [address] [place] [address], * (ABNORMAL) Lipid panel (05/18/2023) LDL/HDL Ratio 4 0 - 4 Triglycerides 292(A) 0 - 150 mg/dL Cholesterol 190 0 - 200 mg/dL HDL 44 >=40 mg/dL LDL Cholesterol 88 0 - 100 mg/dL Blood Venous blood specimen / Unknown Elizabet Provider LAB BLOOD ORDERABLES Gricelda l Result from Last 3 Months or Most Recently Relevant to Health Maintenance Insurance * Guarantor: Jose Robins Account Type Relation to Patient Date of Phone Billing Address Personal/Family Self 1935 [address] [place], [place] [id number] [place] [address] MEDICARE ADVANTAGE Care Teams Category Manager Relationship Specialty Start Date End Date Marlene Arreola MD [address] [place] [id number] [facility] - General 11/17/1998
--- OUTSIDE RECORDS SUMMARY | 2024-10-18 08:05 | XMS_ITS | Encounter Summary ---
Demographics Address [address] [place] [address] Home Phone Work Phone Mobile Phone Home Phone Mobile Phone Email Address Preferred Language en Marital Status Pentecostalism Affiliation Unknown Race White Ethnic Group Not or Lati no Author Organization [facility] Address [address] [place] [address] Support Name Relationship Address Phone Amy Robins Spouse [address] [place] [address] Joce Robins Son [address] [place] [address] Care Team Providers Care Network Design Architect Name Role Phone Marlene Arreola MD Primary Care Provider Encounter Details Date Type Department Care Team (Late Contact Info) Description 09/19/2024 Lab Requisition [facility] - Main Lab [address] [facility] [place] [phone] Kenny Minor MD [address] [place] [phone] Elevated prostate specific antigen (PSA) Social History Tobacco Use Types Packs/Day Years Used Date Smoking Tobacco: Never Smokeless Tobacco: Never Alcohol Use Standard Drinks/Week Comments Yes 0 (1 standard drink = 0.6 oz pur e alcohol) Sex and Gender Information Value Date Recorded Sex Assigned at Not on file Legal Sex Male 2:28 AM EST Gender Identity Not on file Sexual Orientation Not on file documented as of this encounter Plan of Treatment Upcoming Encounters Date Type Department Care Team (Late Contact Info) Description 01/26/2025 11:00 AM EST Office Visit Adult Medicine [address] [phone] Marlene Arreola MD [address] [place] [phone] 05/30/2025 9:15 AM EDT Office Visit [facility]phrology - [facility] [address] [facility] [phone] Paolo Rosales MD [address] [phone] documented as of this encounter Procedures Procedure Name Priority Date/Time Associated Diagnosis Comments TISSUE EXAM Routine 09/16/2024 Elevated prostate specific antigen (PSA) documented in this encounter Results * Tissue Exam (09/16/2024) Final Diagnosis A. Prostate, Left Middle [place] Biopsy: - Prostatic acinar adenocarcinoma (conventional type), grade group 1 (Aziza score 3+3=6). - Tumor continuously involves 98% of 1 of 1 tissue core. B. Prostate, Left Lateral [place] Biopsy: - Atypical small acinar proliferation (ANAHI). C. Prostate, Left Middle [place] Biopsy: - Benign prostatic tissue. D. Prostate, Left Lateral [place] Biopsy: - Benign prostatic tissue. E. Prostate, Left Middle [place] Biopsy: - Benign prostatic tissue. F. Prostate, Left Lateral [place] Biopsy: - Benign prostatic tissue. G. Prostate, Right Middle [place] Biopsy: - Prostatic acinar adenocarcinoma (conventional type), grade group 1 (Tiff score 3+3=6). - Tumor continuously involves 90% of 1 of 1 tissue core. H. Prostate, Right Lateral [place] Biopsy: - Prostatic acinar adenocarcinoma (conventional type), grade group 1 (Tiff score 3+3=6). - Tumor discontinuously involves 36% [...] intraepithelial neoplasia (HGPIN). 09/22/2024 12:47 PM EDT [facility] Clinical Information Elevated PSA = 39.1 (08/08/24) [id number] 09/22/2024 12:47 PM T [facility] Gross Description A. Prostate, Left [place] Biopsy: Received, properly labeled, are two H and E stained slides and two unstained slides. B. Prostate, Left Lateral [place] Biopsy: Received, properly labeled, are two H [...] two unstained slides. G. Prostate, Right Middle [place] Biopsy: Received, properly labeled, are two H and E stained slides and two unstained slides. H. Prostate, Right Lateral [place] Biopsy: Received, properly labeled, are two H [...] unstained slides. /al 09/22/2024 12:47 PM T [facility] Disclaimer Unless otherwise specified, all tissue is 10% NB formalin fixed and paraffin embedded. Technical pathology services provided by [facility] at [address] [place] [address] [address], [place] [address] (CLIA #[id number]/Judy Palomo MD, Train Caller) 09/22/2024 12:47 PM EDT [facility] Tissue Prostate / Unknown 09/16/20242024 2:13 [...] Minor MD LAB PATHOLOGY ORDERABLES Final Result [facility]) [facility] [address] [place] [address], documented in this encounter Visit Diagnoses Diagnosis Elevated prostate specific antigen (PSA) documented in this encounter Additional Health Concerns Assessment Noted Time PHQ-9 Depression Total Score: 0 03/14/19 25 9:13 AM EST A fall risk assessment has been complete d for the patient 03/14/2024 9:12 AM EST documented as of this encounter Care Teams Network Design Architect Relationship Specialty Start Date End Date Marlene Arreola MD [address] [place] [address] PCP - General 11/17/1998 documented as of this encounter
--- NOTE | 2024-10-18 08:23 | MHC.OFFVIS ---
Vital Signs 10/18/24 08:25 Height 5 ft 7 in Weight 184 lb 11.958 oz BMI 28.9 BP 110/66 Blood Pressure Location Rt brachial Position Sitting Pulse 68 Pulse Source Pulse Oximeter Intake Visit Reasons: 6 mth f/up Senior Game Advisor Required: No Accompanied by: Spouse Allergies No Known Allergies Allergy (Verified 09/12/24 10:17) Medication List - Last Reconciled 10/18/24 by Ned Cates MD acetaminophen 650 mg PO Q6H PRN allopurinol 100 mg PO DAILY apixaban (Eliquis) 2.5 mg PO BID dapagliflozin propanediol (Farxiga) 5 mg PO DAILY hydrochlorothiazide 25 mg PO DAILY lisinopril 30 mg PO DAILY meclizine 25 mg PO TID PRN metoprolol tartrate 25 mg See Protocol PO BID potassium citrate ER 10 mEq PO BID rosuvastatin 5 mg PO BEDTIME tamsulosin 0.4 mg PO BEDTIME HPI Comments Details: Jose returns for follow-up regarding atrial flutter. Last year, we had seen him in consultation for atrial flutter. Subsequently, he was followed by our nurse practitioner and this time he is seeing me. Overall, he generally feels okay but main complaint is just feeling tired. No other concerns like angina or shortness of breath. Occasional dizziness, very nonspecific. Does not sound like orthostatic. [facility] Medical History CKD (chronic kidney disease) BPH (benign prostatic hyperplasia) Gout Mixed hyperlipidemia Hypertension Family History Father No problems noted. Mother Myocardial infarction Social History Alcohol intake: current Alcohol intake frequency: holidays/special occasions only Alcohol type: beer Patient Tobacco Use Status: Never used Tobacco service: No Review of Systems Const Denies chills, Denies fatigue, Denies fever(s), Denies frequent falls, Denies weakness, Denies weight gain and Denies weight loss ENT Denies dizziness Card Denies chest pain, Denies leg edema, Denies lightheadedness, Denies palpitations, Denies dyspnea and Denies dyspnea on exertion Resp Denies cough, Denies dyspnea and Denies dyspnea on exertion GI Denies hematochezia Musc Denies abnormal gait, Denies muscle weakness, Denies numbness, Denies radiating pain into limb and Denies tingling Neuro Denies abnormal gait, Denies dizziness, Denies frequent falls, Denies numbness, Denies tingling and Denies weakness Endo Denies fatigue and Denies palpitations Physical Exam Vital Signs: Last Vital Signs Pulse 68 10/18/24 08:25 BP 110/66 10/18/24 08:25 BMI result Body Mass Index 28.9 Const General: comfortable and no acute distress Orientation/consciousness: patient oriented x3 HEENT Other: Unremarkable Head: Yes normal to inspection Neck Neck: Yes normal visual inspection Chest Chest palpation & inspection: normal inspection of the chest Resp Auscultation: clear to auscultation bilaterally Cardio Palpation: normal PMI Heart sounds: S1 normal heart sound present, S2 normal heart sound present, no gallops, Murmur heart sound present systolic II/ and at the right sternal border and no rubs GI Palpation (GI): Soft to palpation Back/Spine/Pelvis Other: unremarkable Skin General skin exam: no rashes or lesions noted Neuro General: patient oriented x3 Extrem General: Yes normal to inspection Psych Mental Status: mental status grossly normal Assessment & Plan Assessment & Plan (1) Atrial flutter by electrocardiogram: Code(s): I48.92 - Unspecified atrial flutter Category: Medical Plan: Holter from last year reported as atrial fibrillation but seems to be rather atrial flutter throughout. By auscultation today he is in sinus rhythm. By recent EKG he is in sinus bradycardia at 55/Min. He is complaining of lot of tiredness and that could be from beta-blockers. We will review the repeat Holter. We can consider switching the metoprolol to atenolol. For now, he will try taking it once a day and see if it helps or not. Otherwise, continue anticoagulation. (2) Abnormal nuclear stress test: Code(s): R94.39 - Abnormal result of other cardiovascular function study Category: Medical Plan: Myocardial perfusion imaging study reported have mixed ischemia/infarct pattern in the inferior wall. Clinically, he has got absolutely no angina. At his age, recommend conservative care. He is already on beta-blockers and statins. No changes. (3) Hypertension: Code(s): I10 - Essential (primary) hypertension Category: Medical Plan: Stable. Plan Discussion Notes I discussed with the patient the current status of his atrial flutter and the importance of monitoring his heart rhythm. We talked about the potential side effects of his medication, particularly metoprolol, and considered adjusting the dosage to once daily to see if it alleviates his fatigue. I advised waiting for the heart monitor results before making any significant changes to his treatment plan. Patient was informed and verbally consented to the use of an ambient scribe for clinic note documentation during this visit. Patient Instructions: - Continue current medication regimen until further notice. - Monitor for any new or worsening symptoms and report them. - Follow up in six months or sooner if symptoms change. Coding Level of Care Code Est Pt Level 4 (60322) Complex EM visit Add On G2211 Diagnoses Atrial flutter by electrocardiogram I48.92 Abnormal nuclear stress test R94.39 Hypertension I10
[2024-10-18 08:25] VITALS: BP 110/66; PULSE 68; BMI 28.9
== END 2024-10-18 08:42 | disposition home or self-care (01) ==
LOC: HO.HCS 08:02
PROVIDERS: PCP Internal Medicine; Visit Provider Internal Medicine
DX: I48.92 Unspecified atrial flutter (principal); R94.39 Abnormal result of other cardiovascular function study; I10 Essential (primary) hypertension
CPT/HCPCS: 99214; G2211

== ENCOUNTER → 2024-10-18 08:01 | Outpatient (BNVA) | payer MEDICARE, SELFPAY | PROVIDERS: PCP Internal Medicine; Visit Provider Internal Medicine | DX: I10 Essential (primary) hypertension (principal); I48.92 Unspecified atrial flutter; R94.39 Abnormal result of other cardiovascular function study | CPT/HCPCS: 99212 ==